=== PATIENT | male | born 1985 | race Caucasian/White ===

== ENCOUNTER 2020-08-04 01:18 | Inpatient (IN) | payer BC ==
[2020-08-04] MEDS ORDERED: LORazepam 2 MG/ML INJ IV STA (01:31)
--- NOTE | 2020-08-04 01:31 | ED ---
Psych HPI - General Chief Complaint: Psychiatric Symptoms Stated Complaint: Mental Health Time Seen by Provider: 08/04/20 01:31 Source: patient, RN notes reviewed, old records reviewed Mode of arrival: ambulatory Limitations: altered mental status - History of Present Illness Initial Comments: This is a 35-year-old male DF for evaluation patient Dese for evaluation of significant psychiatric issues. Patient is depressed and suicidal. States that his left him.. Patient does admit to doing some amphetamines and different medications as well as some drinking some alcohol. Patient does admit to depression suicidal thoughts. Patient is rambling agitated, was found outside the hospital did not come in under his own will go to [facility] for psychiatric evaluation MD Complaint: suicidal ideation, feels depressed, altered mental status -: hour(s) Associated Psychiatric Symptoms: depression, suicidal ideation, racing thoughts Quality: constant Improves With: none Worsens With: none Context: recent drug abuse, significant life stressor Associated Symptoms: confusion Treatments Prior to Arrival: placed on mental health hold If Self Harm: admits thoughts of self harm - Related Data Allergies Allergy/AdvReac Type Severity Reaction Status Date / Time No Known Allergies Allergy Verified 08/04/20 01:29 Review of Systems ROS Statement: Those systems with pertinent positive or pertinent negative responses have been documented in the HPI. ROS Other: All systems not noted in ROS Statement are negative. Past Medical History Past Medical History: No Reported History History of Any Multi-Drug Resistant Organisms: None Reported Past Surgical History: No Surgical Hx Reported Past Psychological History: No Psychological Hx Reported Smoking Status: Current every day smoker Past Alcohol Use History: Abuse, Heavy Past Drug Use History: Marijuana General Exam Limitations: no limitations General appearance: alert, in no apparent distress, anxious Head exam: Present: atraumatic, normocephalic, normal inspection Eye exam: Present: normal appearance, PERRL, EOMI. Absent: scleral icterus, conjunctival injection, periorbital swelling ENT exam: Present: normal exam, mucous membranes moist Neck exam: Present: normal inspection. Absent: tenderness, meningismus, lymphadenopathy Respiratory exam: Present: normal lung sounds bilaterally. Absent: respiratory distress, wheezes, rales, rhonchi, stridor Cardiovascular Exam: Present: normal rhythm, tachycardia, normal heart sounds. Absent: systolic murmur, diastolic murmur, rubs, gallop, clicks GI/Abdominal exam: Present: soft, normal bowel sounds. Absent: distended, tenderness, guarding, rebound, rigid Extremities exam: Present: normal inspection, full ROM, normal capillary refill. Absent: tenderness, pedal edema, joint swelling, calf tenderness Back exam: Present: normal inspection Neurological exam: Present: alert, oriented X3, CN II-XII intact Psychiatric exam: Present: normal affect, normal mood Skin exam: Present: warm, dry, intact, normal color. Absent: rash Course Vital Signs 08/04/20 08/04/20 01:21 03:22 Temperature 98 F Pulse Rate 144 H 108 H Respiratory 18 20 Rate Blood Pressure 170/96 120/69 O2 Sat by Pulse 97 97 Oximetry - Reevaluation(s) Reevaluation #1: 08/04/20 05:15 Medical record is reviewed 08/04/20 05:15 Medical clear for psychiatric evaluation Medical Decision Making - Medical Decision Making 35 male who was seen and evaluated by psychiatry, patient be admitted for psychiatric evaluation and treatment - Lab Data Result diagrams: 08/04/20 01:45 08/04/20 01:45 Lab Results 08/04/20 08/04/20 08/04/20 Range/Units 01:45 01:45 01:45 WBC 11.8 H (3.8-10.6) k/uL RBC 6.34 H (4.30-5.90) m/uL Hgb 13.5 (13.0-17.5) gm/dL Hct 40.4 (39.0-53.0) % MCV 63.7 L (80.0-100.0) fL MCH 21.3 L (25.0-35.0) pg MCHC 33.4 (31.0-37.0) g/dL RDW 14.1 (11.5-15.5) % Plt Count 264 (150-450) k/uL MPV 7.4 Neutrophils % 71 % Lymphocytes % 21 % Monocytes % 5 % Eosinophils % 1 % Basophils % 1 % Neutrophils # 8.4 H (1.3-7.7) k/uL Lymphocytes # 2.4 (1.0-4.8) k/uL Monocytes # 0.6 (0-1.0) k/uL Eosinophils # 0.1 (0-0.7) k/uL Basophils # 0.1 (0-0.2) k/uL Microcytosis Marked Sodium 139 (137-145) mmol/L Potassium 3.4 L (3.5-5.1) mmol/L Chloride 101 (98-107) mmol/L Carbon Dioxide 25 (22-30) mmol/L Anion Gap 13 mmol/L BUN 7 L (9-20) mg/dL Creatinine 1.14 (0.66-1.25) mg/dL Est GFR (CKD-EPI)AfAm >90 (>60 ml/min/1.73 sqM) Est GFR (CKD-EPI)NonAf 84 (>60 ml/min/1.73 sqM) Glucose 152 H (74-99) mg/dL Calcium 10.2 (8.4-10.2) mg/dL Phosphorus 4.0 (2.5-4.5) mg/dL Magnesium 2.1 (1.6-2.3) mg/dL Total Bilirubin 1.7 H (0.2-1.3) mg/dL AST 41 (17-59) U/L ALT 39 (4-49) U/L Alkaline Phosphatase 70 (38-126) U/L Total Protein 7.9 (6.3-8.2) g/dL Albumin 5.2 H (3.5-5.0) g/dL Salicylates <1.0 mg/dL Urine Opiates Screen Not Detected (NotDetected) Ur Oxycodone Screen Not Detected (NotDetected) Urine Methadone Screen Not Detected (NotDetected) Ur Propoxyphene Screen Not Detected (NotDetected) Acetaminophen <10.0 ug/mL Ur Barbiturates Screen Not Detected (NotDetected) U Tricyclic Antidepress Not Detected (NotDetected) Ur Phencyclidine Scrn Not Detected (NotDetected) Ur Amphetamines Screen Detected H (NotDetected) U Methamphetamines Scrn Not Detected (NotDetected) U Benzodiazepines Scrn Not Detected (NotDetected) Urine Cocaine Screen Not Detected (NotDetected) U Marijuana (THC) Screen Detected H (NotDetected) Serum Alcohol 46 mg/dL Disposition Clinical Impression: Drug-induced psychotic disorder, Psychosis Disposition: TRANSFER TO PSYCH HOSP/UNIT Condition: Fair Is patient prescribed a controlled substance at d/c from ED?: No Referrals: Cristine Wilks DO [Primary Care Provider] - 1-2 days
[2020-08-04] MEDS ORDERED: SODIUM CHLORIDE 0.9% 1,000 ML IV STA ×2 (01:32)
[2020-08-04 02:01] LABS: Basophils # (A) 0.1 k/uL (0-0.2); Basophils % (A) 1 %; Eosinophils # (A) 0.1 k/uL (0-0.7); Eosinophils % (A) 1 %; HCT 40.4 % (39.0-53.0); HGB 13.5 gm/dL (13.0-17.5); Lymphocytes # (A) 2.4 k/uL (1.0-4.8); Lymphocytes % (A) 21 %; MCH 21.3 pg (25.0-35.0); MCHC 33.4 g/dL (31.0-37.0); MCV 63.7 fL (80.0-100.0); Mean Platelet Volume 7.4; Microcytosis Marked; Monocytes # (A) 0.6 k/uL (0-1.0); Monocytes % (A) 5 %; Neutrophils # (A) 8.4 k/uL (1.3-7.7); Neutrophils % (A) 71 %; Platelet Count 264 k/uL (150-450); RBC 6.34 m/uL (4.30-5.90); RDW 14.1 % (11.5-15.5); WBC 11.8 k/uL (3.8-10.6)
[2020-08-04 02:10] LABS: ALT 39 U/L (4-49); AST 41 U/L (17-59); Acetaminophen <10.0 ug/mL; African American GFR (CKD) >90 (>60 ml/min/1.73 sqM); Albumin 5.2 g/dL (3.5-5.0); Alcohol 46 mg/dL; Alkaline Phosphatase 70 U/L (38-126); Anion Gap 13 mmol/L; Blood Urea Nitrogen 7 mg/dL (9-20); Calcium 10.2 mg/dL (8.4-10.2); Carbon Dioxide 25 mmol/L (22-30); Chloride 101 mmol/L (98-107); Glucose 152 mg/dL (74-99); Magnesium 2.1 mg/dL (1.6-2.3); Non-African American GFR(CKD) 84 (>60 ml/min/1.73 sqM); Potassium 3.4 mmol/L (3.5-5.1); Salicylate <1.0 mg/dL; Sodium 139 mmol/L (137-145); Total Bilirubin 1.7 mg/dL (0.2-1.3); Total Protein 7.9 g/dL (6.3-8.2)
[2020-08-04 03:19] LABS: Amphetamine Screen,Urine Detected (NotDetected); Cocaine Screen,Urine Not Detected (NotDetected); Opiate Screen,Urine Not Detected (NotDetected); Phencyclidine Screen,Urine Not Detected (NotDetected); Urn Cannabinoid Scrn Detected (NotDetected)
[2020-08-04 03:20] LABS: Barbiturate Screen,Urine Not Detected (NotDetected); Benzodiazepines Screen,Urine Not Detected (NotDetected); Methadone Screen, Urine Not Detected (NotDetected); Oxycodone Screen, Urine Not Detected (NotDetected); Tricyclic Antidepressant,Urine Not Detected (NotDetected)
[2020-08-04] MEDS ORDERED: ACETAMINOPHEN TAB 325 MG TAB PO PRN (09:19)
[2020-08-04] MEDS ORDERED: LORazepam 1 MG TAB PO PRN (09:19)
[2020-08-04] MEDS ORDERED: MAGNESIUM HYDROXIDE 2,400 MG/10 ML CUP PO PRN (09:19)
[2020-08-04] MEDS ORDERED: MAG HYDROX/AL HYDROX/SIMETH 30 ML CUP PO PRN (09:19)
[2020-08-04] MEDS ORDERED: LORazepam 2 MG/ML INJ IM PRN (09:21)
[2020-08-04] MEDS ORDERED: HALOPERIDOL LACTATE 5 MG/ML 1 ML VIAL IM PRN (09:22)
[2020-08-04] MEDS ORDERED: haloperidoL 5 MG TAB PO PRN (09:22)
[2020-08-04] MEDS: amLODIPine 5 MG TAB PO SCH (16:34)
--- NOTE | 2020-08-04 17:13 | P.HP ---
Psychiatric H&P - . H&P Date: 08/04/20 History & Physical: Reviewed the medical record and attempted to interview the patient. He is markedly sedated and would not get out of bed. I'll attempt to evaluate again him tomorrow. Allergies Allergy/AdvReac Type Severity Reaction Status Date / Time No Known Allergies Allergy Verified 08/04/20 10:44 Vital Signs Temp 96.9 F L 08/04/20 16:35 Pulse 63 08/04/20 16:35 Resp 16 08/04/20 16:35 BP 127/86 08/04/20 16:35 Pulse Ox 97 08/04/20 09:45 Intake & Output 08/03/20 08/04/20 08/04/20 18:59 06:59 18:59 Weight 127.006 kg 134.3 kg Laboratory Last Values WBC 11.8 k/uL (3.8-10.6) H 08/04/20 01:45 RBC 6.34 m/uL (4.30-5.90) H 08/04/20 01:45 Hgb 13.5 gm/dL (13.0-17.5) 08/04/20 01:45 Hct 40.4 % (39.0-53.0) 08/04/20 01:45 MCV 63.7 fL (80.0-100.0) L 08/04/20 01:45 MCH 21.3 pg (25.0-35.0) L 08/04/20 01:45 MCHC 33.4 g/dL (31.0-37.0) 08/04/20 01:45 RDW 14.1 % (11.5-15.5) 08/04/20 01:45 Plt Count 264 k/uL (150-450) 08/04/20 01:45 MPV 7.4 08/04/20 01:45 Neutrophils % 71 % 08/04/20 01:45 Lymphocytes % 21 % 08/04/20 01:45 Monocytes % 5 % 08/04/20 01:45 Eosinophils % 1 % 08/04/20 01:45 Basophils % 1 % 08/04/20 01:45 Neutrophils # 8.4 k/uL (1.3-7.7) H 08/04/20 01:45 Lymphocytes # 2.4 k/uL (1.0-4.8) 08/04/20 01:45 Monocytes # 0.6 k/uL (0-1.0) 08/04/20 01:45 Eosinophils # 0.1 k/uL (0-0.7) 08/04/20 01:45 Basophils # 0.1 k/uL (0-0.2) 08/04/20 01:45 Microcytosis Marked 08/04/20 01:45 Sodium 139 mmol/L (137-145) 08/04/20 01:45 Potassium 3.4 mmol/L (3.5-5.1) L 08/04/20 01:45 Chloride 101 mmol/L (98-107) 08/04/20 01:45 Carbon Dioxide 25 mmol/L (22-30) 08/04/20 01:45 Anion Gap 13 mmol/L 08/04/20 01:45 BUN 7 mg/dL (9-20) L 08/04/20 01:45 Creatinine 1.14 mg/dL (0.66-1.25) 08/04/20 01:45 Est GFR (CKD-EPI)AfAm >90 (>60 ml/min/1.73 sqM) 08/04/20 01:45 Est GFR (CKD-EPI)NonAf 84 (>60 ml/min/1.73 sqM) 08/04/20 01:45 Glucose 152 mg/dL (74-99) H 08/04/20 01:45 Calcium 10.2 mg/dL (8.4-10.2) 08/04/20 01:45 Phosphorus 4.0 mg/dL (2.5-4.5) 08/04/20 01:45 Magnesium 2.1 mg/dL (1.6-2.3) 08/04/20 01:45 Total Bilirubin 1.7 mg/dL (0.2-1.3) H 08/04/20 01:45 AST 41 U/L (17-59) 08/04/20 01:45 ALT 39 U/L (4-49) 08/04/20 01:45 Alkaline Phosphatase 70 U/L (38-126) 08/04/20 01:45 Total Protein 7.9 g/dL (6.3-8.2) 08/04/20 01:45 Albumin 5.2 g/dL (3.5-5.0) H 08/04/20 01:45 Salicylates <1.0 mg/dL 08/04/20 01:45 Urine Opiates Screen Not Detected (NotDetected) 08/04/20 01:45 Ur Oxycodone Screen Not Detected (NotDetected) 08/04/20 01:45 Urine Methadone Screen Not Detected (NotDetected) 08/04/20 01:45 Ur Propoxyphene Screen Not Detected (NotDetected) 08/04/20 01:45 Acetaminophen <10.0 ug/mL 08/04/20 01:45 Ur Barbiturates Screen Not Detected (NotDetected) 08/04/20 01:45 U Tricyclic Antidepress Not Detected (NotDetected) 08/04/20 01:45 Ur Phencyclidine Scrn Not Detected (NotDetected) 08/04/20 01:45 Ur Amphetamines Screen Detected (NotDetected) H 08/04/20 01:45 U Methamphetamines Scrn Not Detected (NotDetected) 08/04/20 01:45 U Benzodiazepines Scrn Not Detected (NotDetected) 08/04/20 01:45 Urine Cocaine Screen Not Detected (NotDetected) 08/04/20 01:45 U Marijuana (THC) Screen Detected (NotDetected) H 08/04/20 01:45 Serum Alcohol 46 mg/dL 08/04/20 01:45 Coronavirus (PCR) Not Detected (Not Detectd) 08/04/20 06:22 08/04/20 17:12
--- NOTE | 2020-08-05 03:50 | P.MDCNMH ---
History of Present Illness H&P Date: 08/05/20 Chief Complaint: medical evaluation 35 year old male with ADD, hypertension patient comes in to the hospital for evaluation , due to suicidal ideation , and he is struggling with ADD. he other gardner denies any medical complaints, he does report border line A1C that he has been trying to control . and also history of KARRIE, otherwise currently denies any medical concerns , denies any fever, chills, chest pain , sOB, abd pain , nausea or vomiting, denies any changes in bowel or urinary habits. Review of Systems Pertinent positives as noted in HPI. All other systems were reviewed and are negative Past Medical History Past Medical History: No Reported History, Hypertension Additional Past Medical History / Comment(s): hx of Sleep apnea History of Any Multi-Drug Resistant Organisms: None Reported Past Surgical History: No Surgical Hx Reported Past Anesthesia/Blood Transfusion Reactions: No Reported Reaction Past Psychological History: No Psychological Hx Reported Smoking Status: Current every day smoker Past Alcohol Use History: Abuse, Heavy Past Drug Use History: Marijuana - Past Family History Family Family Medical History: No Reported History Medications and Allergies Home Medications Medication Instructions Recorded Confirmed Type Dextroamphetamine/Amphetamine 30 mg PO DAILY 08/04/20 08/04/20 History [Adderall Xr] Dextroamphetamine/Amphetamine 20 mg PO DAILY 08/04/20 08/04/20 History [Dextroamp-Amphetamin 20 mg Tab] Omeprazole 40 mg PO DAILY 08/04/20 08/04/20 History PARoxetine HCL [Paxil] 60 mg PO DAILY 08/04/20 08/04/20 History amLODIPine [Norvasc] 5 mg PO DAILY 08/04/20 08/04/20 History Allergies Allergy/AdvReac Type Severity Reaction Status Date / Time No Known Allergies Allergy Verified 08/04/20 10:44 Physical Exam Vitals: Vital Signs Temp Pulse Pulse Resp BP BP Pulse Ox 08/04/20 16:35 96.9 F L 63 16 127/86 08/04/20 09:45 97.7 F 85 18 150/97 97 08/04/20 09:32 98.1 F 88 18 151/93 99 08/04/20 08:00 18 08/04/20 06:00 98.1 F 88 18 151/93 99 Intake and Output 08/04/20 08/04/20 08/05/20 14:59 22:59 06:59 Other: Weight 134.3 kg Constitutional: No acute distress, conversant, pleasant Eyes: Anicteric sclerae, moist conjunctiva, Pupils equal round reactive to light ENMT: NC/AT Oropharynx clear, no erythema, or exudates Neck: Supple, FROM, no masses, or JVD No carotid bruits No thyromegaly Lungs: Clear to auscultation Clear to percussion Normal respiratory effort, no accessory muscle use Cardiovascular: Heart regular in rate and rhythm, No murmurs, gallops, or rubs No peripheral edema Abdominal: Soft Nontender, no guarding, rebound or rigidity Abdomen moving with respiration Normoactive bowel sounds No hepatomegaly, No splenomegaly No palpable mass No abdominal wall hernia noted Skin: Normal temperature, tone, texture, turgor No induration No subcutaneous nodules No rash, lesions No ulcers Extremities: No digital cyanosis No clubbing Pedal pulses intact and symmetrical Radial pulses intact and symmetrical No calf tenderness Psychiatric: Alert and oriented to person, place and time Appropriate affect fair judgement Neuro Muscles Strength 5/5 in all 4 extremities Sensation to light touch grossly present throughout Cranial nerves II-XII grossly intact No focal sensory deficits Lymphatics: no palpable cervical or supraclavicular , or inguinal lymph nodes Cranial Nerve Examination - Cranial Nerves Cranial Nerve II- Optic: Intact Cranial Nerve III- Oculomotor: Intact Cranial Nerve IV- Trochlear: Intact Cranial Nerve V- Trigeminal: Intact Cranial Nerve - Abducens: Intact Cranial Nerve VII- Facial: Intact Cranial Nerve VIII- Auditory: Intact Cranial Nerve IX- Glossopharyngeal: Intact Cranial Nerve X- Vagus: Intact Cranial Nerve XI- Accessory: Intact Cranial Nerve XII- Hypoglossal: Intact Results CBC & Chem 7: 08/04/20 01:45 08/04/20 01:45 Assessment and Plan Assessment: Suicidal ideation ADD Management per psych Suicide precautions Hypertension resume home meds Borderline diabetes mellitus, Check A1c Counseled regarding Lifestyle modification Obstructive sleep apnea Encouraged patient to sleep on his left side while inpatient Thank you for allowing us to participate in the care of this patient. We will follow peripherally. Do not hesitate to contact us with questions. Someone can be reached from the [facility] [place] [facility] [place] at all hours of the day at [phone].
[2020-08-05] MEDS: amLODIPine 5 MG TAB PO SCH (08:49)
[2020-08-05 13:51] LABS: Hemoglobin A1C 5.8 % (4.0-6.0)
[2020-08-06 07:10] VITALS: BP 112/70; PULSE 72; RESP 16; TEMP 97.9
[2020-08-06] MEDS: amLODIPine 5 MG TAB PO SCH (10:07)
--- NOTE | 2020-08-06 11:22 | P.DS ---
Providers Date of admission: 08/04/20 09:05 Expected date of discharge: 08/06/20 Attending physician: Venkat Peralta MD Consults: 08/04/20 09:19 Consult Physician Routine Consulting Provider: Ned Walker Consult Reason/Comments: H&P for mental health admission Do you want consulting provider notified?: Yes Primary care physician: Cristine Wilks - Discharge Diagnosis(es) (1) Substance induced mood disorder Current Visit: Yes Status: Acute Priority: High (2) Amphetamine abuse Current Visit: Yes Status: Acute Priority: High (3) Cannabis abuse Current Visit: Yes Status: Acute Priority: Medium (4) History of ADHD Current Visit: Yes Status: Acute Priority: Low Hospital Course: Admission HPI: Admission note was completed by Dr. Thomson "Yoni is a 35-year-old male admitted to the psychiatric unit voluntarily. I reviewed the medical record, interviewed the patient and spoke with his , Romi, on the telephone. This was a difficult interview in that he was not forthcoming with information. The interview felt like a game of 20 questions. He was guarded, suspicious and controlling. He stated that he was at the [facility] because he had his first marriage at the [facility] and it was a "happy time of my life." [place] and when he saw a police car attempted to get the attention of the patient safety officer to take him to the hospital. 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 He walked to the hospital and, because he had worked at a hospital before, he knew to "stand around the employee entrance." After getting to attention of employees who were leaving the hospital he waited until security arrived. When asked him what was distressing him he replied "life in general." Eventually he related that he was at the [place] and because his left him but he denied that they're having marital difficulties. He alleged that his was distressed because he had an argument with her father because he had "fired" her brother from his car [employer] business. He denied feeling depressed but complained that he was distressed about lifel. Romi stated that she and her family have been concerned about his well-being. He stated that he has been agitated and restless. She complained that he was speaking rapidly and nonstop. Her father attempted, on the prior to admission, to bring in the hospital because father was concerned about his mental health. Romi stated that she left him because she could not "take it" anymore. When asked to explain what she meant she talked about his restlessness and demands on her." Hospital course: Upon admission to the unit patient was initially guarded and suspicious. Patient was however directable and agreeable to commence treatment and signed adult voluntary form. Patient got along well with other patients on the unit and followed unit protocol. Patient was compliant with the medications and denied any side effects throughout hospital course. Patient was started on his home medications except for Adderall which was held. Patient had been admitting to abusing this medication and taking more than he supposed to to help with his energy level during the day and nighttime as he is started new business. Pull Worker spoke with patient about the abuse potential of this medication and potential risks including tolerance and overdosed potential and abuse, its link to depression and mental illness and patient verbally understood and agreed to take the medication as prescribed. Patient was not started on any other psychiatric medications during his hospitalization. Patient spoke of his stressors and engaged in therapy both group and individual. Patient was also seen by medical team for history and physical exam. Throughout the course of the hospitalization patient gradually improved with regards to mood, anxiety, sleep and became more future oriented with improved insight and judgment. On the day of discharge patient denied any suicidal or homicidal ideations intent or plan denied any auditory or visual hallucinations. Patient endorsed wanting to live for his health and family. The patient denied any access to guns or weapons. Patient denied any paranoia and did not endorse any delusions. Patient does have a significant history of substance abuse and was counseled on abstaining from all substances including alcohol and marijuana. Patient was offered inpatient substance abuse rehab and states that he will think about it as he is fairly busy with his new business. Patient elected to do outpatient substance use treatment programs. Patient was also counseled on the medications and need for regular compliance and was encouraged to follow-up with their outpatient appointment for mental health and also for primary care. Prior to discharge a family meeting will be arranged by social services specialist to answer any questions and ensure safety upon discharge. Mental status exam: General Appearance: Patient appears to be a tall, overweight, stated age is alert, pleasant, and cooperative. Patient is in no acute distress and has improved hygiene and grooming Behavior: Patient is calmly seated without any agitated behavior. Speech: Patient's speech is fluent and nonpressured. Mood/Affect: Patient reports their mood is "better", affect is congruent and euthymic. Suicidality/Homicidality: Patient denies having any suicidal or homicidal ideation intent or plan. Perceptions: Patient denies any auditory or visual hallucinations. Though content/process: There is no evidence of any delusional thought content and thought process is linear and goal-directed. more future oriented Memory and concentration: AOX3, grossly intact for the purposes of this session. Can spell "WORLD" backwards correctly. Judgment and insight: improved with guarded prognosis Impression: Substance-induced mood disorder Amphetamine abuse Cannabis abuse History of ADHD Plan: -Continue with discharge today as patient has improved and stabilized psychiatrically and is not currently an imminent threat to himself and/or others. Patient will remain at chronically elevated risk for harm to self and/or others due to his polysubstance abuse. -Continue medications: Patient's home medications. Patient was specifically warned about the risks and link to mental health of his Adderall as stated above. Patient verbally understood and agreed. -Patient was counseled on the need for medication compliance and appropriate follow-up at mental health and also primary care for medical issues. Patient verbalized understanding and agreed. -Social work to arrange for and conduct family meeting with patients today to ensure safety upon discharge and answer any questions/concerns. Social work also to arrange for patients follow up appointments for psychiatric care along with follow up with primary care provider. -Patient counseled on abstaining from recreational drugs and marijuana and alcohol. Was informed/educated on the adverse effects on their physical and mental health. Patient verbally agreed and understood. Patient was offered substance abuse treatment however claimed that he would like to think about it. -Patient was instructed to return to the hospital or seek immediate medical care if their psychiatric or medical symptoms do worsen or reoccur. Allergies Allergy/AdvReac Type Severity Reaction Status Date / Time No Known Allergies Allergy Verified 08/04/20 10:44 Laboratory Results WBC 11.8 k/uL (3.8-10.6) H 08/04/20 01:45 RBC 6.34 m/uL (4.30-5.90) H 08/04/20 01:45 Hgb 13.5 gm/dL (13.0-17.5) 08/04/20 01:45 Hct 40.4 % (39.0-53.0) 08/04/20 01:45 MCV 63.7 fL (80.0-100.0) L 08/04/20 01:45 MCH 21.3 pg (25.0-35.0) L 08/04/20 01:45 MCHC 33.4 g/dL (31.0-37.0) 08/04/20 01:45 RDW 14.1 % (11.5-15.5) 08/04/20 01:45 Plt Count 264 k/uL (150-450) 08/04/20 01:45 MPV 7.4 08/04/20 01:45 Neutrophils % 71 % 08/04/20 01:45 Lymphocytes % 21 % 08/04/20 01:45 Monocytes % 5 % 08/04/20 01:45 Eosinophils % 1 % 08/04/20 01:45 Basophils % 1 % 08/04/20 01:45 Neutrophils # 8.4 k/uL (1.3-7.7) H 08/04/20 01:45 Lymphocytes # 2.4 k/uL (1.0-4.8) 08/04/20 01:45 Monocytes # 0.6 k/uL (0-1.0) 08/04/20 01:45 Eosinophils # 0.1 k/uL (0-0.7) 08/04/20 01:45 Basophils # 0.1 k/uL (0-0.2) 08/04/20 01:45 Microcytosis Marked 08/04/20 01:45 Sodium 139 mmol/L (137-145) 08/04/20 01:45 Potassium 3.4 mmol/L (3.5-5.1) L 08/04/20 01:45 Chloride 101 mmol/L (98-107) 08/04/20 01:45 Carbon Dioxide 25 mmol/L (22-30) 08/04/20 01:45 Anion Gap 13 mmol/L 08/04/20 01:45 BUN 7 mg/dL (9-20) L 08/04/20 01:45 Creatinine 1.14 mg/dL (0.66-1.25) 08/04/20 01:45 Est GFR (CKD-EPI)AfAm >90 (>60 ml/min/1.73 sqM) 08/04/20 01:45 Est GFR (CKD-EPI)NonAf 84 (>60 ml/min/1.73 sqM) 08/04/20 01:45 Glucose 152 mg/dL (74-99) H 08/04/20 01:[address] Glu mg/dL 120 08/04/20 01:45 Hemoglobin A1c 5.8 % (4.0-6.0) 08/04/20 01:45 Calcium 10.2 mg/dL (8.4-10.2) 08/04/20 01:45 Phosphorus 4.0 mg/dL (2.5-4.5) 08/04/20 01:45 Magnesium 2.1 mg/dL (1.6-2.3) 08/04/20 01:45 Total Bilirubin 1.7 mg/dL (0.2-1.3) H 08/04/20 01:45 AST 41 U/L (17-59) 08/04/20 01:45 ALT 39 U/L (4-49) 08/04/20 01:45 Alkaline Phosphatase 70 U/L (38-126) 08/04/20 01:45 Total Protein 7.9 g/dL (6.3-8.2) 08/04/20 01:45 Albumin 5.2 g/dL (3.5-5.0) H 08/04/20 01:45 Triglycerides 83 mg/dL (<150) 08/04/20 01:45 Cholesterol 166 mg/dL (<200) 08/04/20 01:45 LDL Cholesterol, Calc 103 mg/dL (0-99) H 08/04/20 01:45 HDL Cholesterol 46 mg/dL (40-60) 08/04/20 01:45 TSH 2.640 mIU/L (0.465-4.680) 08/04/20 01:45 Salicylates <1.0 mg/dL 08/04/20 01:45 Urine Opiates Screen Not Detected (NotDetected) 08/04/20 01:45 Ur Oxycodone Screen Not Detected (NotDetected) 08/04/20 01:45 Urine Methadone Screen Not Detected (NotDetected) 08/04/20 01:45 Ur Propoxyphene Screen Not Detected (NotDetected) 08/04/20 01:45 Acetaminophen <10.0 ug/mL 08/04/20 01:45 Ur Barbiturates Screen Not Detected (NotDetected) 08/04/20 01:45 U Tricyclic Antidepress Not Detected (NotDetected) 08/04/20 01:45 Ur Phencyclidine Scrn Not Detected (NotDetected) 08/04/20 01:45 Ur Amphetamines Screen Detected (NotDetected) H 08/04/20 01:45 U Methamphetamines Scrn Not Detected (NotDetected) 08/04/20 01:45 U Benzodiazepines Scrn Not Detected (NotDetected) 08/04/20 01:45 Urine Cocaine Screen Not Detected (NotDetected) 08/04/20 01:45 U Marijuana (THC) Screen Detected (NotDetected) H 08/04/20 01:45 Serum Alcohol 46 mg/dL 08/04/20 01:45 Coronavirus (PCR) Not Detected (Not Detectd) 08/04/20 06:22 Vital Signs Temp 97.9 F 08/06/20 06:09 Pulse 72 08/06/20 06:09 Resp 16 08/06/20 06:09 BP 112/70 08/06/20 06:09 Pulse Ox 96 08/05/20 22:35 Patient Condition at Discharge: Stable Plan - Discharge Summary Discharge Rx Participant: No New Discharge Prescriptions: Continue Dextroamphetamine/Amphetamine [Adderall Xr] 30 mg PO DAILY Omeprazole 40 mg PO DAILY amLODIPine [Norvasc] 5 mg PO DAILY Discontinued PARoxetine HCL [Paxil] 60 mg PO DAILY Dextroamphetamine/Amphetamine [Dextroamp-Amphetamin 20 mg Tab] 20 mg PO DAILY Discharge Medication List Dextroamphetamine/Amphetamine [Adderall Xr] 30 mg PO DAILY 08/04/20 [History] Omeprazole 40 mg PO DAILY 08/04/20 [History] amLODIPine [Norvasc] 5 mg PO DAILY 08/04/20 [History] Follow up Appointment(s)/Referral(s): rCistine Wilks DO [Primary Care Provider] - 1-2 days Activity/Diet/Wound Care/Special Instructions: Activity and diet as tolerated. Avoid the use of street drugs and alcohol. Take all medications as prescribed. When you are in need of refills on your medications please contact your medical provider and/or outpatient psychiatrist to have this done. Please go to scheduled outpatient appointment for aftercare treatment. If symptoms return or become worse, call the crisis line at and/or go to the nearest emergency room for evaluation. Discharge Disposition: HOME SELF-CARE
== END 2020-08-06 18:23 | disposition home or self-care (01) | DRG 897 ==
LOC: EC 01:18 → 3MHU 09:05
PROVIDERS: ADMIT Psychiatry & Neurology Psychiatry; ATTEND Psychiatry & Neurology Psychiatry
DX: F15.159 Other stimulant abuse with stimulant-induced psychotic disorder, unspecified (principal); R45.851 Suicidal ideations; F12.10 Cannabis abuse, uncomplicated; F17.210 Nicotine dependence, cigarettes, uncomplicated; F31.9 Bipolar disorder, unspecified; R73.03 Prediabetes; F41.9 Anxiety disorder, unspecified; I10 Essential (primary) hypertension; Z59.9 Problem related to housing and economic circumstances, unspecified; Z20.822 Contact with and (suspected) exposure to COVID-19; Z71.51 Drug abuse counseling and surveillance of drug abuser; G47.33 Obstructive sleep apnea (adult) (pediatric); Z79.899 Other long term (current) drug therapy
CPT/HCPCS: 36415; 80053; 80061; 80143; 80179; 80306; 80320; 82075; 83036; 83735; 84100; 84443; 85025; 87635; 96361; 96374; 99285

== ENCOUNTER 2021-11-28 18:02 | Inpatient (IN) | payer BC ==
[2021-11-28] MEDS ORDERED: OLANZapine 10 MG VIAL IM PRN (18:44)
[2021-11-28] MEDS ORDERED: OLANZapine 7.5 MG TAB PO PRN (18:44)
[2021-11-28] MEDS ORDERED: hydrOXYzine pamoate 25 MG CAP PO PRN (19:09)
[2021-11-28] MEDS ORDERED: MAG HYDROX/AL HYDROX/SIMETH 30 ML CUP PO PRN (19:14)
[2021-11-28] MEDS ORDERED: ACETAMINOPHEN TAB 325 MG TAB PO PRN (19:14)
[2021-11-28] MEDS ORDERED: MAGNESIUM HYDROXIDE 2,400 MG/10 ML CUP PO PRN (19:14)
[2021-11-28] MEDS: busPIRone HCl 10 MG TAB PO SCH (21:43)
[2021-11-28] MEDS: OLANZapine 5 MG TAB PO SCH (21:43)
--- NOTE | 2021-11-29 03:52 | P.HPIM ---
History of Present Illness H&P Date: 11/28/21 The patient is a 36-year-old male with a PMH of bipolar disorder and hypertension who was brought to [facility] due to erratic behavior. The patient was noted to be psychotic and was recently transferred to [facility] unit where he was seen and evaluated. The patient reports that he recently had a "mental breakdown" which was triggered by an argument with his . He reports feeling significantly better at the time of interview. Reports using marijuana and vaping but denied any additional illicit substance use. Denied experiencing chest discomfort, shortness of breath, fever, chills, cough, nausea, vomiting, abdominal pain, diarrhea. Review of systems: Pertinent positives and negatives as discussed in HPI, a complete review of systems was performed and all other systems are negative. Physical examination: General: non toxic, no distress, appears at stated age, obese Derm: no unusual rashes/lesions, no unusual ecchymoses, warm, dry Head: atraumatic, normocephalic, symmetric Eyes: EOMI, no lid lag, anicteric sclera ENT: Nose and ears atraumatic, no thrush, no pharyngeal erythema Neck: trachea midline, supple Mouth: no lip lesion, mucus membranes moist Cardiovascular: S1S2 reg, no murmur, no edema Lungs: CTA bilateral, no rhonchi, no rales , no accessory muscle use Abdominal: soft, nontender to palpation, no guarding Ext: no gross muscle atrophy, no contractures, Neuro: No gross focal neuro deficits noted Psych: Alert, oriented, appropriate affect Assessment/plan Marijuana, vape abuse -Strongly advised on importance of cessation Hypertension -Continue with home meds once confirmed Psychosis -As per psychiatry Thank you for allowing us to participate in the care of this patient. We will follow peripherally. Do not hesitate to contact us with questions. Someone can be reached from the [facility] hospitalist group at all hours of the day at [phone]. Past Medical History Past Medical History: No Reported History, Hypertension Additional Past Medical History / Comment(s): hx of Sleep apnea History of Any Multi-Drug Resistant Organisms: None Reported Past Surgical History: No Surgical Hx Reported Past Anesthesia/Blood Transfusion Reactions: No Reported Reaction Past Psychological History: No Psychological Hx Reported Smoking Status: Never smoker Past Drug Use History: Marijuana - Past Family History Family Family Medical History: Hyperlipidemia Medications and Allergies Home Medications Medication Instructions Recorded Confirmed Type Dextroamphetamine/Amphetamine 30 mg PO DAILY 08/04/20 08/04/20 History [Adderall Xr] Omeprazole 40 mg PO DAILY 08/04/20 08/04/20 History amLODIPine [Norvasc] 5 mg PO DAILY 08/04/20 08/04/20 History Allergies Allergy/AdvReac Type Severity Reaction Status Date / Time No Known Allergies Allergy Verified 08/04/20 10:44 Physical Exam Vitals: Vital Signs Temp Pulse Resp BP Pulse Ox 11/28/21 21:51 98 F 86 18 164/92 97 Intake and Output 11/28/21 11/28/21 11/29/21 14:59 22:59 06:59 Other: Weight 147.531 kg Thrombosis Risk Factor Assmnt - Choose All That Apply Any of the Below Risk Factors Present?: No Other Risk Factors: No Other congenital or acquired thrombophilia - If yes, enter type in comment: No Thrombosis Risk Factor Assessment Level: Very Low Risk
[2021-11-29] MEDS: NICOTINE 14MG/24HR PATCH TRANSDERM SCH (08:12)
[2021-11-29] MEDS: amLODIPine 5 MG TAB PO SCH (08:12)
[2021-11-29] MEDS: busPIRone HCl 10 MG TAB PO SCH ×2 (08:12→20:05)
[2021-11-29] MEDS: SERTRALINE 100 MG TAB PO SCH (08:12)
[2021-11-29 09:43] LABS: Basophils % (A) 1 %; Eosinophils # (A) 0.2 k/uL (0-0.7); Eosinophils % (A) 3 %; HCT 44.3 % (39.0-53.0); HGB 13.6 gm/dL (13.0-17.5); Hypochromasia Slight; Lymphocytes # (A) 1.2 k/uL (1.0-4.8); Lymphocytes % (A) 19 %; MCH 20.3 pg (25.0-35.0); MCHC 30.7 g/dL (31.0-37.0); MCV 66.2 fL (80.0-100.0); Mean Platelet Volume 6.9; Microcytosis Marked; Monocytes # (A) 0.3 k/uL (0-1.0); Monocytes % (A) 4 %; Neutrophils # (A) 4.5 k/uL (1.3-7.7); Neutrophils % (A) 72 %; Platelet Count 221 k/uL (150-450); RDW 14.3 % (11.5-15.5); WBC 6.3 k/uL (3.8-10.6)
[2021-11-29 10:03] LABS: ALT 75 U/L (4-49); AST 55 U/L (17-59); African American GFR (CKD) >90 (>60 ml/min/1.73 sqM); Alkaline Phosphatase 55 U/L (38-126); Anion Gap 14 mmol/L; Bilirubin, Delta 0.1 mg/dL (0.0-0.2); Bilirubin,Unconjugated 0.8 mg/dL (0.0-1.1); Blood Urea Nitrogen 13 mg/dL (9-20); Calcium 9.6 mg/dL (8.4-10.2); Carbon Dioxide 26 mmol/L (22-30); Chloride 101 mmol/L (98-107); Glucose 149 mg/dL (74-99); Non-African American GFR(CKD) >90 (>60 ml/min/1.73 sqM); Potassium 4.3 mmol/L (3.5-5.1); Sodium 141 mmol/L (137-145); Total Bilirubin 0.9 mg/dL (0.2-1.3); Total Protein 7.8 g/dL (6.3-8.2)
[2021-11-29] MEDS: PANTOPRAZOLE 40 MG TABLET PO SCH (12:10)
[2021-11-29] MEDS: metFORMIN 500 MG TAB PO SCH ×2 (12:10→17:29)
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
[2021-11-29 15:42] LABS: Chol/HDL Ratio 4.77 Ratio
[2021-11-29] MEDS: OLANZapine 5 MG TAB PO SCH (20:05)
[2021-11-30] MEDS: SERTRALINE 100 MG TAB PO SCH (08:15)
[2021-11-30] MEDS: busPIRone HCl 10 MG TAB PO SCH ×2 (08:15→20:09)
[2021-11-30] MEDS: metFORMIN 500 MG TAB PO SCH ×2 (08:15→18:00)
[2021-11-30] MEDS: PANTOPRAZOLE 40 MG TABLET PO SCH (08:15)
[2021-11-30] MEDS: NICOTINE 14MG/24HR PATCH TRANSDERM SCH (08:15)
[2021-11-30] MEDS: amLODIPine 5 MG TAB PO SCH (08:15)
--- NOTE | 2021-11-30 13:03 | P.PN ---
Progress Note - Text Progress Note Date: 11/30/21 Open nursing and asked for suture removal. The patient has 18 stitches in their left lateral ankle. He reports that the sutures were due to be removed approximately 4-5 days ago. The replaced in the emergency department at [facility] after having an with a chainsaw. He denies any purulent drainage to the area. He denies any fevers or chills. Patient was noted to have 2 healing lacerations to the left lateral malleoli are area. They were both approximately 8 cm in length. Sutures appeared to be in tact some of which were embedded within healing scabs. There was appropriate erythema associated with healing, no warmth, and no purulent drainage noted. There was good approximation of the skin. Area was cleaned with sterile saline first. It was then cleaned with alcohol. Suture removal was performed with forceps and sterile scissors. 18 sutures were removed and accounted for. Area was again cleaned with alcohol. Steri-Strips were placed over both the caudal and cranial lacterations. Area was covered with a 4 x 4. Nursing was given instructions to change 4 x 4 daily and keep area clean and dry. Patient was instructed to allow Steri-Strips to come off naturally and not to pull or tug at these strips. He has had them before and all questions were answered. Assessment/plan: Left Ankle laceration suture removal- 18 sutures removed from left ankle. nursing to monitor once daily. keep area clean and dry
--- NOTE | 2021-11-30 16:34 | P.PN ---
Progress Note - Text Progress Note Date: 11/30/21 Interval history: Patient was seen attending group and was directable and agreeable to speak with technical document writer. He reports he is having a better day, was able to make his son a birthday card. At this time patient denies any suicidal or homicidal ideations intent or plan. He denies any auditory or visual hallucinations, does not appear to be attending internal stimuli. Patient denies any side effects from the medications and has been compliant with meds. Mental status exam: General Appearance: Patient appears to be stated age is alert, directable, and cooperative. Behavior: No agitated behavior. Patient is calm and directable. Speech: Patient's speech is fluent and non-pressured. Mood/Affect: Mood is improving mildly, affect is congruent and constricted. Suicidality/Homicidality: Patient denies having any suicidal or homicidal ideation intent or plan. Perceptions: Patient denies any auditory or visual hallucinations. Though content/process: There is no evidence of any delusional thought content and thought process is linear and goal-directed. Memory and concentration: AOX3, grossly intact for the purposes of this session Judgment and insight: improving mildly Assessment/Plan: Continue with current diagnosis. Patient continues to meet criteria for inp atient psychiatric admission for symptom stabilization and safety. Patient will be maintained on current psychotropic medication regimen. Monitor for medication compliance and for any psychotropic medication side effects. Will continue to monitor ongoing response to treatment. Encouraged participation in milieu.
[2021-11-30] MEDS: OLANZapine 5 MG TAB PO SCH (20:09)
[2021-12-01] MEDS: NICOTINE 14MG/24HR PATCH TRANSDERM SCH (08:38)
[2021-12-01] MEDS: PANTOPRAZOLE 40 MG TABLET PO SCH (08:38)
[2021-12-01] MEDS: metFORMIN 500 MG TAB PO SCH ×2 (08:40→17:31)
[2021-12-01] MEDS: SERTRALINE 100 MG TAB PO SCH (08:40)
[2021-12-01] MEDS: amLODIPine 5 MG TAB PO SCH (08:40)
[2021-12-01] MEDS: busPIRone HCl 10 MG TAB PO SCH ×2 (08:40→20:09)
--- NOTE | 2021-12-01 16:33 | P.PN ---
Progress Note - Text Progress Note Date: 12/01/21 Interval history: Patient was seen attending group again today and was directable and agreeable to speak with comic book writer. He reports good mood day but just misses his family. At this time patient denies any suicidal or homicidal ideations, intent or plan. He denies any auditory or visual hallucinations, does not appear to be attending internal stimuli. Patient denies any side effects from the medications and has been compliant with meds. Mental status exam: General Appearance: Patient appears to be stated age is alert, directable, and cooperative. Behavior: No agitated behavior. Patient is calm and directable. Speech: Patient's speech is fluent and non-pressured. Mood/Affect: Mood is improving mildly, affect is congruent and constricted. Suicidality/Homicidality: Patient denies having any suicidal or homicidal ideation intent or plan. Perceptions: Patient denies any auditory or visual hallucinations. Though content/process: There is no evidence of any delusional thought content and thought process is linear and goal-directed. Memory and concentration: AOX3, grossly intact for the purposes of this session Judgment and insight: improving mildly Assessment/Plan: Continue with current diagnosis. Patient continues to meet criteria for inpatient psychiatric admission for symptom stabilization and safety. Patient will be maintained on current psychotropic medication regimen. Monitor for medication compliance and for any psychotropic medication side effects. Will continue to monitor ongoing response to treatment. Encouraged participation in milieu.
[2021-12-01] MEDS: OLANZapine 5 MG TAB PO SCH (20:09)
[2021-12-02 06:46] VITALS: BP 134/71; PULSE 64; RESP 16; TEMP 97.4
[2021-12-02] MEDS: SERTRALINE 100 MG TAB PO SCH (08:31)
[2021-12-02] MEDS: PANTOPRAZOLE 40 MG TABLET PO SCH (08:31)
[2021-12-02] MEDS: amLODIPine 5 MG TAB PO SCH (08:31)
[2021-12-02] MEDS: metFORMIN 500 MG TAB PO SCH (08:31)
[2021-12-02] MEDS: busPIRone HCl 10 MG TAB PO SCH (08:31)
[2021-12-02] MEDS: NICOTINE 14MG/24HR PATCH TRANSDERM SCH (08:31)
--- NOTE | 2021-12-02 11:05 | P.DS ---
Providers Date of admission: 11/28/21 21:07 Expected date of discharge: 12/02/21 Attending physician: Venkat Peralta MD Consults: 11/28/21 19:14 Consult Physician Routine Consulting Provider: Ned Walker Consult Reason/Comments: medical H&P Do you want consulting provider notified?: Yes Primary care physician: Stated None - Discharge Diagnosis(es) (1) Bipolar disorder with psychotic features Current Visit: Yes Status: Acute Priority: High (2) Cannabis use disorder Current Visit: Yes Status: Acute Priority: Medium (3) Nicotine dependence Current Visit: Yes Status: Acute Priority: Low Hospital Course: Admission HPI: Admission note was completed by keno writer / runner "Patient is a 36-year-old male who is currently and works doing [employer], lives in a house has one child. Patient presented to the hospital yesterday as a transfer from [facility]. Patient was on a petition and certificate which claimed that patient was picked up by police walking on the side of a road naked and was argumentative and verbally threatening officers. According to certificate patient was also making claims that he is God. Patient was seen today and agreeable to speak to keno writer / runner. Patient claims that he is doing better at this time and claims that he "blacked out". He claims he has been in the ER since Thursday and claims that he is just here for a "med review". He claims that he was in a "customers via call" and got into an argument with someone over the phone before "blacking out". He claims that "next thing I realized I was walking on the side of the street naked". He claims that the police picked him up. He states that he is looking for his . He claims that he was feeling confused at that time. He states that he smoked a joint one hour prior to this. He claims that he may have got his medications confused. He is not endorsing any racing thoughts at this time. Not endorsing any depression or anxiety. Patient denies any suicidal or homicidal ideations intent or plan. At this time patient denies any auditory or visual hallucinations. Patient denies any flight of ideas racing thoughts and increased in goal directed behavior. Patient admits to using THC daily and claims that he also vapes" Hospital course: Upon admission to the unit patient was directable and agreeable to commence treatment and signed adult voluntary form . Patient got along well with other patients on the unit and followed unit protocol. Patient was compliant with the medications and denied any side effects throughout hospital course. Patient was started on his home dose of Zoloft 100 mg daily for mood/anxiety, BuSpar 10 mg twice a day for anxiety, Zyprexa 5 mg daily at bedtime for mood stabilization/psychosis. Patient spoke of his stressors and engaged in therapy both group and individual. Patient was also seen by medical team for history and physical exam. Throughout the course of the hospitalization patient gradually improved with regards to mood, anxiety, sleep and became more future oriented with improved insight and judgment. On the day of discharge patient denied any suicidal or homicidal ideations intent or plan denied any auditory or visual hallucinations. Patient endorsed wanting to live for his health and family. The patient denied any access to guns or weapons. Patient denied any paranoia and did not endorse any delusions. Patient does have a significant history of substance abuse and was counseled on abstaining from all substances including alcohol and marijuana. Rip And Groove Machine Operator spoke with patient in great detail about the potential effects of cannabis and also stimulant such as his Adderall that he is on and how it can affect his mental health and possibly cause psychosis, patient states that he agrees and will attempt to cut back and speak with his outpatient provider about this for other alternatives. Patient was also counseled on the medications and need for regular compliance and was encouraged to follow-up with their outpatient appointment for mental health and also for primary care. Prior to discharge a family meeting will be arranged by social welfare research worker to answer any questions and ensure safety upon discharge. Mental status exam: General Appearance: Patient appears to be overweight,stated age is alert, pleasant, and cooperative. Patient is in no acute distress and has improved hygiene and grooming Behavior: Patient is calmly seated without any agitated behavior. Speech: Patient's speech is fluent and nonpressured. Mood/Affect: Patient reports their mood is "good", affect is congruent and euthymic. Suicidality/Homicidality: Patient denies having any suicidal or homicidal ideation intent or plan. Perceptions: Patient denies any auditory or visual hallucinations. Though content/process: There is no evidence of any delusional thought content and thought process is linear and goal-directed. more future oriented Memory and concentration: AOX3, grossly intact for the purposes of this session. Can spell "WORLD" backwards correctly. Judgment and insight: improved with guarded prognosis Impression: Bipolar disorder, with psychotic features Cannabis use disorder Nicotine dependence Plan: -Continue with discharge today as patient has improved and stabilized psychiatrically and is not currently an imminent threat to himself and/or others. Patient will remain at chronically elevated risk for harm to self and/or others due to his substance abuse. -Continue medications: Zyprexa 5 mg daily at bedtime for mood stabilization/psychosis, Zoloft 100 mg daily for mood/anxiety, BuSpar 10 mg twice a day for anxiety. -Patient was counseled on the need for medication compliance and appropriate follow-up at mental health and also primary care for medical issues. Patient verbalized understanding and agreed. -Social work to arrange for and conduct family meeting to ensure safety upon discharge and answer any questions/concerns. Social work also to arrange for patients follow up appointments with [facility] for psychiatric care along with follow up with primary care provider. -Patient counseled on abstaining from recreational drugs and marijuana and alcohol. Was informed/educated on the adverse effects on their physical and mental health. Patient verbally agreed and understood. -Patient was instructed to return to the hospital or seek immediate medical care if their psychiatric or medical symptoms do worsen or reoccur. Allergies Allergy/AdvReac Type Severity Reaction Status Date / Time No Known Allergies Allergy Verified 08/04/20 10:44 Laboratory Results WBC 6.3 k/uL (3.8-10.6) 11/29/21 09:05 RBC 6.70 m/uL (4.30-5.90) H 11/29/21 09:05 Hgb 13.6 gm/dL (13.0-17.5) 11/29/21 09:05 Hct 44.3 % (39.0-53.0) 11/29/21 09:05 MCV 66.2 fL (80.0-100.0) L 11/29/21 09:05 MCH 20.3 pg (25.0-35.0) L 11/29/21 09:05 MCHC 30.7 g/dL (31.0-37.0) L 11/29/21 09:05 RDW 14.3 % (11.5-15.5) 11/29/21 09:05 Plt Count 221 k/uL (150-450) 11/29/21 09:05 MPV 6.9 11/29/21 09:05 Neutrophils % 72 % 11/29/21 09:05 Lymphocytes % 19 % 11/29/21 09:05 Monocytes % 4 % 11/29/21 09:05 Eosinophils % 3 % 11/29/21 09:05 Basophils % 1 % 11/29/21 09:05 Neutrophils # 4.5 k/uL (1.3-7.7) 11/29/21 09:05 Lymphocytes # 1.2 k/uL (1.0-4.8) 11/29/21 09:05 Monocytes # 0.3 k/uL (0-1.0) 11/29/21 09:05 Eosinophils # 0.2 k/uL (0-0.7) 11/29/21 09:05 Basophils # 0.0 k/uL (0-0.2) 11/29/21 09:05 Hypochromasia Slight 11/29/21 09:05 Microcytosis Marked 11/29/21 09:05 Sodium 141 mmol/L (137-145) 11/29/21 09:05 Potassium 4.3 mmol/L (3.5-5.1) 11/29/21 09:05 Chloride 101 mmol/L (98-107) 11/29/21 09:05 Carbon Dioxide 26 mmol/L (22-30) 11/29/21 09:05 Anion Gap 14 mmol/L 11/29/21 09:05 BUN 13 mg/dL (9-20) 11/29/21 09:05 Creatinine 0.94 mg/dL (0.66-1.25) 11/29/21 09:05 Est GFR (CKD-EPI)AfAm >90 (>60 ml/min/1.73 sqM) 11/29/21 09:05 Est GFR (CKD-EPI)NonAf >90 (>60 ml/min/1.73 sqM) 11/29/21 09:05 Glucose 149 mg/dL (74-99) H 11/29/21 09:[address] Glu mg/dL 132 11/29/21 09:05 Hemoglobin A1c 6.2 % (0.0-6.0) H 11/29/21 09:05 Calcium 9.6 mg/dL (8.4-10.2) 11/29/21 09:05 Total Bilirubin 0.9 mg/dL (0.2-1.3) 11/29/21 09:05 Conjugated Bilirubin 0.0 mg/dL (0.0-0.3) 11/29/21 09:05 Unconjugated Bilirubin 0.8 mg/dL (0.0-1.1) 11/29/21 09:05 Delta Bilirubin 0.1 mg/dL (0.0-0.2) 11/29/21 09:05 AST 55 U/L (17-59) 11/29/21 09:05 ALT 75 U/L (4-49) H 11/29/21 09:05 Alkaline Phosphatase 55 U/L (38-126) 11/29/21 09:05 Total Protein 7.8 g/dL (6.3-8.2) 11/29/21 09:05 Albumin 5.0 g/dL (3.5-5.0) 11/29/21 09:05 Triglycerides 139.00 mg/dL (0.00-149.00) 11/29/21 09:05 Cholesterol 163.00 mg/dL (0.00-200.00) 11/29/21 09:05 LDL Cholesterol, Calc 101.0 mg/dL (0.0-131.0) 11/29/21 09:05 VLDL Cholesterol, Calc 27.80 mg/dL (5.00-40.00) 11/29/21 09:05 HDL Cholesterol 34.20 mg/dL (40.00-60.00) L 11/29/21 09:05 Cholesterol/HDL Ratio 4.77 Ratio 11/29/21 09:05 TSH 3.790 mIU/L (0.465-4.680) 11/29/21 09:05 Vital Signs Temp 97.4 F L 12/02/21 06:46 Pulse 64 12/02/21 06:46 Resp 16 12/02/21 06:46 BP 134/71 12/02/21 06:46 Pulse Ox 99 12/02/21 06:46 FiO2 Intake & Output 12/01/21 12/02/21 12/02/21 18:59 06:59 18:59 Weight 147.2 kg Patient Condition at Discharge: Stable Plan - Discharge Summary New Discharge Prescriptions: New busPIRone HCl [Buspar] 10 mg PO BID 30 Days tab metFORMIN HCL [Glucophage] 500 mg PO BID-W/MEALS 30 Days tab Nicotine 14Mg/24Hr Patch [Habitrol] 1 patch TRANSDERM DAILY 14 Days patch Sertraline [Zoloft] 100 mg PO DAILY 30 Days tab OLANZapine [ZyPREXA] 5 mg PO HS 30 Days tab Continue Omeprazole 40 mg PO DAILY amLODIPine [Norvasc] 5 mg PO DAILY Discontinued Dextroamphetamine/Amphetamine [Adderall Xr] 30 mg PO DAILY Discharge Medication List Omeprazole 40 mg PO DAILY 08/04/20 [History] amLODIPine [Norvasc] 5 mg PO DAILY 08/04/20 [History] Nicotine 14Mg/24Hr Patch [Habitrol] 1 patch TRANSDERM DAILY 14 Days patch 12/02/21 [Rx] OLANZapine [ZyPREXA] 5 mg PO HS 30 Days tab 12/02/21 [Rx] Sertraline [Zoloft] 100 mg PO DAILY 30 Days tab 12/02/21 [Rx] busPIRone HCl [Buspar] 10 mg PO BID 30 Days tab 12/02/21 [Rx] metFORMIN HCL [Glucophage] 500 mg PO BID-W/MEALS 30 Days tab 12/02/21 [Rx] Follow up Appointment(s)/Referral(s): Psychiatry, [facility] [Other] - 12/09/21 9:00 am (Marta Miranda ) Activity/Diet/Wound Care/Special Instructions: Avoid the use of street drugs and alcohol. Take all prescriptions as prescribed. When you are in need of refills on your medications, please contact your medical provider and/or outpatient psychiatrist to have this done. Please go to scheduled outpatient appointment for aftercare treatment. If symptoms return or become worse, call the crisis line at and/or go to the nearest emergency room for evaluation. Discharge Disposition: HOME SELF-CARE
== END 2021-12-02 12:36 | disposition home or self-care (01) | DRG 885 ==
LOC: 3MHU 21:07
PROVIDERS: ADMIT Psychiatry & Neurology Psychiatry; ATTEND Psychiatry & Neurology Psychiatry
DX: F31.5 Bipolar disorder, current episode depressed, severe, with psychotic features (principal); F12.10 Cannabis abuse, uncomplicated; F17.290 Nicotine dependence, other tobacco product, uncomplicated; F17.210 Nicotine dependence, cigarettes, uncomplicated; Z71.51 Drug abuse counseling and surveillance of drug abuser; F41.9 Anxiety disorder, unspecified; I10 Essential (primary) hypertension; S91.012A Laceration without foreign body, left ankle, initial encounter; Z79.899 Other long term (current) drug therapy
CPT/HCPCS: 80053; 80061; 82248; 83036; 84443; 85025

== ENCOUNTER 2022-11-09 20:25 | Inpatient (IN) | payer BC ==
--- NOTE | 2022-11-09 22:09 | ED ---
Psych HPI - General Chief Complaint: Psychiatric Symptoms Stated Complaint: Mental Health Time Seen by Provider: 11/09/22 21:11 Source: EMS Mode of arrival: EMS - History of Present Illness Initial Comments: This patient is a 37-year-old man with history of bipolar disorder who states that he is feeling well and does not know why he is here. The patient states that "my mom wanted me to get checked out." He states he does have recent psychiatric admission at [facility], but after he was released there he has been feeling well. He states he has been taking his medications. He denies hallucinations. He denies suicidal or homicidal ideation MD Complaint: other -: hour(s) Associated Psychiatric Symptoms: none Quality: constant Improves With: none Worsens With: none Associated Symptoms: denies other symptoms - Related Data Home Medications Medication Instructions Recorded Confirmed Omeprazole 40 mg PO DAILY 08/04/20 11/10/22 amLODIPine [Norvasc] 5 mg PO DAILY 08/04/20 11/10/22 Amoxic-Pot Clav 875-125Mg PO DAILY 11/10/22 [Augmentin 875-125] QUEtiapine [SEROquel] 50 mg PO HS 11/10/22 11/10/22 lamoTRIgine [LaMICtal] 100 mg PO HS 11/10/22 11/10/22 Previous Rx's Medication Instructions Recorded Nicotine 14Mg/24Hr Patch [Habitrol] 1 patch TRANSDERM DAILY 14 Days 12/02/21 patch OLANZapine [ZyPREXA] 5 mg PO HS 30 Days tab 12/02/21 Sertraline [Zoloft] 100 mg PO DAILY 30 Days tab 12/02/21 busPIRone HCl [Buspar] 10 mg PO BID 30 Days tab 12/02/21 metFORMIN HCL [Glucophage] 500 mg PO BID-W/MEALS 30 Days tab 12/02/21 Allergies Allergy/AdvReac Type Severity Reaction Status Date / Time No Known Allergies Allergy Verified 11/09/22 20:40 Review of Systems ROS Statement: Those systems with pertinent positive or pertinent negative responses have been documented in the HPI. ROS Other: All systems not noted in ROS Statement are negative. Constitutional: Denies: fever Respiratory: Denies: cough, dyspnea Cardiovascular: Denies: chest pain, edema Gastrointestinal: Denies: abdominal pain, vomiting, diarrhea Genitourinary: Denies: dysuria, frequency Musculoskeletal: Denies: back pain Skin: Denies: rash Neurological: Denies: headache, weakness Psychiatric: Denies: depression, auditory hallucinations, visual hallucinations, homicidal thoughts, suicidal thoughts Past Medical History Past Medical History: No Reported History, Hypertension Additional Past Medical History / Comment(s): hx of Sleep apnea. colononscopy 2022 History of Any Multi-Drug Resistant Organisms: None Reported Past Surgical History: No Surgical Hx Reported Past Anesthesia/Blood Transfusion Reactions: No Reported Reaction Past Psychological History: No Psychological Hx Reported Smoking Status: Vaper Past Drug Use History: Marijuana - Past Family History Family Family Medical History: Hyperlipidemia General Exam General appearance: alert, in no apparent distress Head exam: Present: atraumatic, normocephalic Eye exam: Present: normal appearance. Absent: scleral icterus, conjunctival injection Neck exam: Present: normal inspection Respiratory exam: Present: normal lung sounds bilaterally. Absent: respiratory distress, wheezes, rales, rhonchi, stridor Cardiovascular Exam: Present: regular rate, normal rhythm, normal heart sounds. Absent: systolic murmur, diastolic murmur, rubs, gallop GI/Abdominal exam: Present: soft. Absent: distended, tenderness, guarding, rebound, rigid, mass Extremities exam: Present: normal inspection, normal capillary refill. Absent: pedal edema, calf tenderness Back exam: Present: normal inspection. Absent: CVA tenderness (R), CVA tenderness (L) Neurological exam: Present: alert, oriented X3 Psychiatric exam: Present: normal affect, normal mood. Absent: agitated, anxious, homicidal ideation, suicidal ideation Skin exam: Present: warm, dry, intact, normal color. Absent: rash Course Vital Signs 11/09/22 11/09/22 20:28 23:00 Temperature 98.5 F 98.1 F Pulse Rate 105 H 85 Respiratory 18 Rate Blood Pressure 184/99 147/97 O2 Sat by Pulse 98 97 Oximetry Medical Decision Making - Lab Data Lab Results 11/10/22 Range/Units 01:13 Influenza Type A (PCR) Not Detected (Not Detectd) Influenza Type B (PCR) Not Detected (Not Detectd) RSV (PCR) Not Detected (Not Detectd) SARS-CoV-2 (PCR) Not Detected (Not Detectd) Disposition Clinical Impression: Mood disorder Disposition: ADMITTED IP TO THIS HOSP Condition: Fair Is patient prescribed a controlled substance at d/c from ED?: No
[2022-11-10] MEDS ORDERED: haloperidoL 5 MG TAB PO PRN (02:34)
[2022-11-10] MEDS ORDERED: MAGNESIUM HYDROXIDE 2,400 MG/30 ML CUP PO PRN (02:34)
[2022-11-10] MEDS ORDERED: IBUPROFEN 600 MG TAB PO PRN (02:34)
[2022-11-10] MEDS ORDERED: ACETAMINOPHEN TAB 325 MG TAB PO PRN (02:34)
[2022-11-10] MEDS ORDERED: LORazepam 2 MG/ML INJ IM PRN (02:34)
[2022-11-10] MEDS ORDERED: HALOPERIDOL LACTATE 5 MG/ML 1 ML VIAL IM PRN (02:34)
[2022-11-10 03:38] LABS: Appearance,Urine Clear (Clear); Bilirubin,Urine Negative (Negative); Blood,Urine Negative (Negative); Color,Urine Yellow; Glucose,Urine (UA) Negative (Negative); Ketones,Urine 1+ (Negative); Leukocyte Esterase,Urine Negative (Negative); Nitrite,Urine Negative (Negative); PH, Urine 5.5 (5.0-8.0); Protein,Urine Trace (Negative); Specific Gravity,Urine 1.025 (1.001-1.035); Urobilinogen,Urine <2.0 mg/dL (<2.0)
[2022-11-10 03:48] LABS: Amphetamine Screen,Urine Detected (NotDetected); Barbiturate Screen,Urine Not Detected (NotDetected); Benzodiazepines Screen,Urine Detected (NotDetected); Cocaine Screen,Urine Not Detected (NotDetected); Methadone Screen, Urine Not Detected (NotDetected); Opiate Screen,Urine Not Detected (NotDetected); Oxycodone Screen, Urine Not Detected (NotDetected); Phencyclidine Screen,Urine Not Detected (NotDetected); Tricyclic Antidepressant,Urine Not Detected (NotDetected); Urn Cannabinoid Scrn Detected (NotDetected)
[2022-11-10] MEDS: NICOTINE 14MG/24HR PATCH TRANSDERM SCH (08:09)
--- NOTE | 2022-11-10 12:12 | P.HP ---
Psychiatric H&P - . H&P Date: 11/10/22 History & Physical: Allergies Allergy/AdvReac Type Severity Reaction Status Date / Time No Known Allergies Allergy Verified 11/09/22 20:40 Vital Signs Temp 98.5 F 11/10/22 06:44 Pulse 78 11/10/22 06:44 Resp 20 11/10/22 06:44 BP 148/92 11/10/22 06:44 Pulse Ox 95 11/10/22 06:44 FiO2 Intake & Output 11/09/22 11/10/22 11/10/22 18:59 06:59 18:59 Weight 154.42 kg Laboratory Last Values Urine Color Yellow 11/10/22 02:42 Urine Appearance Clear (Clear) 11/10/22 02:42 Urine pH 5.5 (5.0-8.0) 11/10/22 02:42 Ur Specific [place] 1.025 (1.001-1.035) 11/10/22 02:42 Urine Protein Trace (Negative) H 11/10/22 02:42 Urine Glucose (UA) Negative (Negative) 11/10/22 02:42 Urine Ketones 1+ (Negative) H 11/10/22 02:42 Urine Blood Negative (Negative) 11/10/22 02:42 Urine Nitrite Negative (Negative) 11/10/22 02:42 Urine Bilirubin Negative (Negative) 11/10/22 02:42 Urine Urobilinogen <2.0 mg/dL (<2.0) 11/10/22 02:42 Ur Leukocyte Esterase Negative (Negative) 11/10/22 02:42 Urine Opiates Screen Not Detected (NotDetected) 11/10/22 02:42 Ur Oxycodone Screen Not Detected (NotDetected) 11/10/22 02:42 Urine Methadone Screen Not Detected (NotDetected) 11/10/22 02:42 Ur Propoxyphene Screen Not Detected (NotDetected) 11/10/22 02:42 Ur Barbiturates Screen Not Detected (NotDetected) 11/10/22 02:42 U Tricyclic Antidepress Not Detected (NotDetected) 11/10/22 02:42 Ur Phencyclidine Scrn Not Detected (NotDetected) 11/10/22 02:42 Ur Amphetamines Screen Detected (NotDetected) H 11/10/22 02:42 U Methamphetamines Scrn Not Detected (NotDetected) 11/10/22 02:42 U Benzodiazepines Scrn Detected (NotDetected) H 11/10/22 02:42 Urine Cocaine Screen Not Detected (NotDetected) 11/10/22 02:42 U Marijuana (THC) Screen Detected (NotDetected) H 11/10/22 02:42 Influenza Type A (PCR) Not Detected (Not Detectd) 11/10/22 01:13 Influenza Type B (PCR) Not Detected (Not Detectd) 11/10/22 01:13 RSV (PCR) Not Detected (Not Detectd) 11/10/22 01:13 SARS-CoV-2 (PCR) Not Detected (Not Detectd) 11/10/22 01:13 11/10/22 12:12 IDENTIFYING DATA: Patient is a , self-employed, 37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 HPI: Patient presented to the hospital on 11/10/2022 for psychiatric evaluation. Reportedly, the patient was brought in because of a "domestic situation apparently." The patient was a grossly poor historian when presenting to EPS and was religiously preoccupied and very paranoid. He was subsequently admitted onto our psychiatric unit. However, the patient was agreeable to signing himself voluntarily onto the unit. On evaluation on the psychiatric unit, the patient is overtly manic. When asked for the reason why he was brought to the hospital, the patient replies "I was fighting Lucifer and was put in timeout." The patient was unable to provide any clear meaning to his words. He states that "God decided it was time for me to go to the hospital." He does however report that his sleep has been poor. He does report significant symptoms of leslie including racing thoughts, excessive energy, and grandiosity. Furthermore, the patient does acknowledge auditory hallucinations in the form of God speaking to him. He denies any command type hallucinations. He reports "I guess I see things" when inquiring about visual hallucinations. He refuses to elaborate. In regards to paranoia, the patient denies any overt symptoms currently to this provider. He reports that he has "followers, and the protestant sense, like they believe in me." He is currently not endorsing any significant symptoms of depression. He denies any suicidal or homicidal ideation, intention, and/or plan. He does report a prior attempt at suicide back in 2010 by overdosing on Xanax. He is agreeable to being started on Seroquel again and taking lithium. PAST PSYCHIATRIC HISTORY: Patient states that he has been previously diagnosed with ADHD. He recalls being. She prescribed Adderall, Seroquel, Zyprexa, Zoloft, and Lamictal. He is currently prescribed his medications through [facility] and is seen by a PA. Unable to determine previous psychiatric hospitalizations at this time. He reports one prior attempt at suicide by overdosing on Xanax back in 2010. PMH: Past Medical History: No Reported History, Hypertension Additional Past Medical History / Comment(s): hx of Sleep apnea. colononscopy 2022 History of Any Multi-Drug Resistant Organisms: None Reported Past Surgical History: No Surgical Hx Reported Past Anesthesia/Blood Transfusion Reactions: No Reported Reaction Past Psychological History: No Psychological Hx Reported Smoking Status: Vaper Past Drug Use History: Marijuana ALLERGIES: NKDA CHEMICAL DEPENDENCY HISTORY: Patient has a history of marijuana use. He is currently positive for benzodiazepines and amphetamines but is prescribed Adder all and Ativan from his outpatient physician greenhouse assistant. FAMILY PSYCHIATRIC/SUBSTANCE USE HISTORY: The patient reports that his brother has ADHD. SOCIAL HISTORY: Patient was born in [place] and raised in [place]. He currently resides in [place], [place]. He is to his Romi for the past 7 years. He reports that he has a 10-year-old son named Jai who is turning 11. He is currently self-employed. When asked about his profession, the patient reports that he is "working for God." MENTAL STATUS EXAM: General Appearance: Patient appears to be stated age is alert, directable, and attempts to cooperate. Patient appears to have fair hygiene and grooming. Patient is tall and heavyset. Behavior: Patient is seated without any agitated behavior. Eye contact is chino ropriate, slightly intense. Speech: Patient's speech is fluent and nonpressured. Mood/Affect: Patient reports their mood is "actually I feel good," affect is blunted. Suicidality/Homicidality: Patient denies any suicidal or homicidal ideation, intention, and/or plan Perceptions: Patient reports both auditory and visual hallucinations. Though content/process: The patient is endorsing overt grandiosity, protestant preoccupation, and delusional thoughts. Memory and concentration: Grossly poor at this time. Judgment and insight: Fair STRENGTHS/WEAKNESSES: Strength is that the patient appears to be agreeable with treatment and is open with outpatient services. Weakness is that the patient has severe mental illness. INTELLECT: average IMPRESSIONS: Schizoaffective disorder, bipolar type Suspect exacerbation of leslie due to psychostimulants. PLAN: -Patient is admitted under voluntary status to MHU for stabilization of psychiatric symptoms and safety. Patient signed adult voluntary form and medication consent and is placed in patient's chart. -Medications : Will start patient on [place] 450 mg by mouth twice a day for mood stabilization Seroquel 200 mg daily at bedtime when stabilization/psychosis Requip 0.25 mg daily at bedtime for restless leg syndrome -Ativan and Haldol PRN for agitation/aggression -Patient was counselled on substance abuse and desired to cut back on use -Patient was informed of the risks, benefits and side effects of the medication and patient verbally consented to taking the medications. Patient signed med consent form and was placed in chart. -Internal Medicine consult to perform medical evaluation and physical. -NRT - nicotine patch - on board for discharge planning. Encourage patient to participate in groups to work on coping skills. 11/10/22 12:12
[2022-11-10] MEDS: LORazepam 1 MG TAB PO PRN (18:27)
[2022-11-10] MEDS: LITHIUM CARBONATE 150 MG CAP PO SCH (21:02)
[2022-11-10] MEDS: QUEtiapine 200 MG TAB PO SCH (21:03)
[2022-11-11] MEDS: QUEtiapine 200 MG TAB PO SCH (00:23)
[2022-11-11] MEDS: LITHIUM CARBONATE 150 MG CAP PO SCH ×2 (00:23→09:07)
--- NOTE | 2022-11-11 00:43 | P.CONS ---
History of Present Illness - Reason for Consult Consult date: 11/11/22 - History of Present Illness The patient is a 37-year-old male with a PMH of type II DM, hypertension, and bipolar disorder who presented to the emergency room for psychiatric evaluation. The patient was admitted to the mental health unit where he was seen and evaluated. The patient reports that his mother was concerned about him as "she thought I was going crazy". He reports he is on a mission to "make Erica great again". He denied any physical complaints at the time of interview. He denied tobacco, substance, or alcohol use. Urine tox in the emergency room however was positive for marijuana, benzodiazepines, and amphetamines. Review of systems: Pertinent positives and negatives as discussed in HPI, a complete review of systems was performed and all other systems are negative. Physical examination: General: non toxic, no distress, appears at stated age, morbidly obese Derm: no unusual rashes/lesions, no unusual ecchymoses, warm, dry Head: atraumatic, normocephalic, symmetric Eyes: EOMI, no lid lag, anicteric sclera ENT: Nose and ears atraumatic, no thrush, no pharyngeal erythema Neck: trachea midline, supple Mouth: no lip lesion, mucus membranes moist Cardiovascular: S1S2 reg, no murmur, no edema Lungs: CTA bilateral, no rhonchi, no rales , no accessory muscle use Abdominal: soft, nontender to palpation, no guarding Ext: no gross muscle atrophy, no contractures, Neuro: No gross focal neuro deficits noted Psych: Alert, oriented Assessment: Polysubstance abuse Psychosis Chronic conditions: Type II DM, hypertension Plan: Advised on the importance of cessation Continue with home medications Defer management of psychosis to primary psychiatry service Thank you for allowing us to participate in the care of this patient. We will follow peripherally. Do not hesitate to contact us with questions. Someone can be reached from the [facility] hospitalist group at all hours of the day at [phone]. Past Medical History Past Medical History: No Reported History, Hypertension Additional Past Medical History / Comment(s): hx of Sleep apnea. colononscopy 20 23 History of Any Multi-Drug Resistant Organisms: None Reported Past Surgical History: No Surgical Hx Reported Past Anesthesia/Blood Transfusion Reactions: No Reported Reaction Past Psychological History: No Psychological Hx Reported Smoking Status: Vaper Past Drug Use History: Marijuana - Past Family History Family Family Medical History: Hyperlipidemia Medications and Allergies Home Medications Medication Instructions Recorded Confirmed Type Omeprazole 40 mg PO DAILY 08/04/20 11/10/22 History amLODIPine [Norvasc] 5 mg PO DAILY 08/04/20 11/10/22 History Nicotine 14Mg/24Hr Patch [Habitrol] 1 patch TRANSDERM DAILY 14 Days 12/02/21 11/10/22 Rx patch OLANZapine [ZyPREXA] 5 mg PO HS 30 Days tab 12/02/21 11/10/22 Rx Sertraline [Zoloft] 100 mg PO DAILY 30 Days tab 12/02/21 11/10/22 Rx busPIRone HCl [Buspar] 10 mg PO BID 30 Days tab 12/02/21 11/10/22 Rx metFORMIN HCL [Glucophage] 500 mg PO BID-W/MEALS 30 Days tab 12/02/21 11/10/22 Rx Amoxic-Pot Clav 875-125Mg PO DAILY 11/10/22 History [Augmentin 875-125] QUEtiapine [SEROquel] 50 mg PO HS 11/10/22 11/10/22 History lamoTRIgine [LaMICtal] 100 mg PO HS 11/10/22 11/10/22 History Allergies Allergy/AdvReac Type Severity Reaction Status Date / Time No Known Allergies Allergy Verified 11/09/22 20:40 Physical Exam Vitals: Vital Signs Temp Pulse Resp BP Pulse Ox 11/10/22 06:44 98.5 F 78 20 148/92 95 11/10/22 03:33 98.3 F 83 18 156/105 95 Results Labs: Abnormal Lab Results - Last 24 Hours (Table) 11/10/22 11/10/22 Range/Units 02:42 02:42 Urine Protein Trace H (Negative) Urine Ketones 1+ H (Negative) Ur Amphetamines Screen Detected H (NotDetected) U Benzodiazepines Scrn Detected H (NotDetected) U Marijuana (THC) Screen Detected H (NotDetected)
[2022-11-11 08:18] LABS: Basophils % (A) 0 %; Eosinophils # (A) 0.1 k/uL (0-0.7); Eosinophils % (A) 1 %; HGB 13.2 gm/dL (13.0-17.5); Lymphocytes % (A) 24 %; MCH 20.6 pg (25.0-35.0); MCHC 32.2 g/dL (31.0-37.0); MCV 64.1 fL (80.0-100.0); Mean Platelet Volume 7.5; Microcytosis Marked; Monocytes # (A) 0.4 k/uL (0-1.0); Monocytes % (A) 5 %; Neutrophils # (A) 5.7 k/uL (1.3-7.7); Neutrophils % (A) 68 %; Platelet Count 181 k/uL (150-450); RDW 15.1 % (11.5-15.5); WBC 8.3 k/uL (3.8-10.6)
[2022-11-11 08:32] LABS: ALT 84 U/L (4-49); AST 59 U/L (17-59); African American GFR (CKD) >90 (>60 ml/min/1.73 sqM); Alkaline Phosphatase 52 U/L (38-126); Anion Gap 11 mmol/L; Bilirubin, Delta 0.3 mg/dL (0.0-0.2); Blood Urea Nitrogen 14 mg/dL (9-20); Calcium 9.6 mg/dL (8.4-10.2); Carbon Dioxide 26 mmol/L (22-30); Chloride 105 mmol/L (98-107); Glucose 122 mg/dL (74-99); Non-African American GFR(CKD) >90 (>60 ml/min/1.73 sqM); Potassium 4.5 mmol/L (3.5-5.1); Sodium 142 mmol/L (137-145); Total Bilirubin 1.3 mg/dL (0.2-1.3); Total Protein 7.8 g/dL (6.3-8.2)
[2022-11-11] MEDS: metFORMIN 500 MG TAB PO SCH ×2 (09:08→21:29)
[2022-11-11] MEDS: amLODIPine 5 MG TAB PO SCH (09:08)
[2022-11-11] MEDS: NICOTINE 14MG/24HR PATCH TRANSDERM SCH (09:09)
[2022-11-11] MEDS ORDERED: LORazepam 2 MG/ML INJ IM PRN (09:33)
--- NOTE | 2022-11-11 11:48 | P.PN ---
Progress Note - Text Progress Note Date: 11/11/22 Interval History: Patient was seen attending group, accompanied by one to one supervision, and was directable and agreeable to speak with marine underwriter in the office. The patient was noted by staff to have an episode of severe agitation last night. As per staff notes, "the patient entered the dining room yelling, 'Who wants to get their teeth punched in?' This led to a brief verbal exchange between patient and appear. The patient threw to carafes of coffee at the floor as hard as he could." He was eventually descalated and placed on one-to-one supervision. The patient is unable to recall the events of yesterday. He vehemently denies any episodes of agitation. He becomes very irritated when asked about this situation. The patient is primarily concerned about feeling overly sedated on Seroquel. He is asking that his medications are decreased. He was offered the alternative to switch to risperidone. The patient is currently irritable. He continues to present with roman catholic preoccupation and very poor insight. Mental Status Exam: General Appearance: Patient appears to be stated age, however is difficult to direct. Patient appears to have fair hygiene and grooming. Patient is tall and heavyset. Behavior: Patient displays slightly elevated psychomotor activity. Speech: Patient's speech is repetitive and monotone. Mood/Affect: Mood is "I'm not manic." Affect is irritable and intense. Suicidality/Homicidality: Patient reports no suicidal or homicidal ideation. Perceptions: Patient denies any visual hallucinations are very continues to report auditory hallucinations. Though content/process: The patient appears to be religiously preoccupied, delus ional, and suspicious of others. Very guarded. Paranoid. Memory and concentration: Grossly poor. Judgment and insight: Grossly poor. Vital Signs Temp 98.5 F 11/10/22 06:44 Pulse 78 11/10/22 06:44 Resp 20 11/10/22 06:44 BP 148/92 11/10/22 06:44 Pulse Ox 95 11/10/22 06:44 FiO2 Laboratory Results WBC 8.3 k/uL (3.8-10.6) 11/11/22 07:55 RBC 6.40 m/uL (4.30-5.90) H 11/11/22 07:55 Hgb 13.2 gm/dL (13.0-17.5) 11/11/22 07:55 Hct 41.0 % (39.0-53.0) 11/11/22 07:55 MCV 64.1 fL (80.0-100.0) L 11/11/22 07:55 MCH 20.6 pg (25.0-35.0) L 11/11/22 07:55 MCHC 32.2 g/dL (31.0-37.0) 11/11/22 07:55 RDW 15.1 % (11.5-15.5) 11/11/22 07:55 Plt Count 181 k/uL (150-450) 11/11/22 07:55 MPV 7.5 11/11/22 07:55 Neutrophils % 68 % 11/11/22 07:55 Lymphocytes % 24 % 11/11/22 07:55 Monocytes % 5 % 11/11/22 07:55 Eosinophils % 1 % 11/11/22 07:55 Basophils % 0 % 11/11/22 07:55 Neutrophils # 5.7 k/uL (1.3-7.7) 11/11/22 07:55 Lymphocytes # 2.0 k/uL (1.0-4.8) 11/11/22 07:55 Monocytes # 0.4 k/uL (0-1.0) 11/11/22 07:55 Eosinophils # 0.1 k/uL (0-0.7) 11/11/22 07:55 Basophils # 0.0 k/uL (0-0.2) 11/11/22 07:55 Microcytosis Marked 11/11/22 07:55 Sodium 142 mmol/L (137-145) 11/11/22 07:55 Potassium 4.5 mmol/L (3.5-5.1) 11/11/22 07:55 Chloride 105 mmol/L (98-107) 11/11/22 07:55 Carbon Dioxide 26 mmol/L (22-30) 11/11/22 07:55 Anion Gap 11 mmol/L 11/11/22 07:55 BUN 14 mg/dL (9-20) 11/11/22 07:55 Creatinine 0.91 mg/dL (0.66-1.25) 11/11/22 07:55 Est GFR (CKD-EPI)AfAm >90 (>60 ml/min/1.73 sqM) 11/11/22 07:55 Est GFR (CKD-EPI)NonAf >90 (>60 ml/min/1.73 sqM) 11/11/22 07:55 Glucose 122 mg/dL (74-99) H 11/11/22 07:55 Calcium 9.6 mg/dL (8.4-10.2) 11/11/22 07:55 Total Bilirubin 1.3 mg/dL (0.2-1.3) 11/11/22 07:55 Conjugated Bilirubin 0.0 mg/dL (0.0-0.3) 11/11/22 07:55 Unconjugated Bilirubin 1.0 mg/dL (0.0-1.1) 11/11/22 07:55 Delta Bilirubin 0.3 mg/dL (0.0-0.2) H 11/11/22 07:55 AST 59 U/L (17-59) 11/11/22 07:55 ALT 84 U/L (4-49) H 11/11/22 07:55 Alkaline Phosphatase 52 U/L (38-126) 11/11/22 07:55 Total Protein 7.8 g/dL (6.3-8.2) 11/11/22 07:55 Albumin 5.0 g/dL (3.5-5.0) 11/11/22 07:55 TSH 6.880 mIU/L (0.465-4.680) H 11/11/22 07:55 Free T4 1.17 ng/dL (0.78-2.19) 11/11/22 07:55 Urine Color Yellow 11/10/22 02:42 Urine Appearance Clear (Clear) 11/10/22 02:42 Urine pH 5.5 (5.0-8.0) 11/10/22 02:42 Ur Specific [place] 1.025 (1.001-1.035) 11/10/22 02:42 Urine Protein Trace (Negative) H 11/10/22 02:42 Urine Glucose (UA) Negative (Negative) 11/10/22 02:42 Urine Ketones 1+ (Negative) H 11/10/22 02:42 Urine Blood Negative (Negative) 11/10/22 02:42 Urine Nitrite Negative (Negative) 11/10/22 02:42 Urine Bilirubin Negative (Negative) 11/10/22 02:42 Urine Urobilinogen <2.0 mg/dL (<2.0) 11/10/22 02:42 Ur Leukocyte Esterase Negative (Negative) 11/10/22 02:42 Urine Opiates Screen Not Detected (NotDetected) 11/10/22 02:42 Ur Oxycodone Screen Not Detected (NotDetected) 11/10/22 02:42 Urine Methadone Screen Not Detected (NotDetected) 11/10/22 02:42 Ur Propoxyphene Screen Not Detected (NotDetected) 11/10/22 02:42 Ur Barbiturates Screen Not Detected (NotDetected) 11/10/22 02:42 U Tricyclic Antidepress Not Detected (NotDetected) 11/10/22 02:42 Ur Phencyclidine Scrn Not Detected (NotDetected) 11/10/22 02:42 Ur Amphetamines Screen Detected (NotDetected) H 11/10/22 02:42 U Methamphetamines Scrn Not Detected (NotDetected) 11/10/22 02:42 U Benzodiazepines Scrn Detected (NotDetected) H 11/10/22 02:42 Urine Cocaine Screen Not Detected (NotDetected) 11/10/22 02:42 U Marijuana (THC) Screen Detected (NotDetected) H 11/10/22 02:42 Influenza Type A (PCR) Not Detected (Not Detectd) 11/10/22 01:13 Influenza Type B (PCR) Not Detected (Not Detectd) 11/10/22 01:13 RSV (PCR) Not Detected (Not Detectd) 11/10/22 01:13 SARS-CoV-2 (PCR) Not Detected (Not Detectd) 11/10/22 01:13 Allergies Allergy/AdvReac Type Severity Reaction Status Date / Time No Known Allergies Allergy Verified 11/09/22 20:40 Assessment Schizoaffective disorder, bipolar type Suspect exacerbation of leslie due to psychostimulants. Plan: -Patient continues to meet criteria for inpatient psychiatric admission for symptom stabilization and safety. Patient has signed adult voluntary form and medication consent and was placed in patient's chart. -Medications: Increase lithium to 600 mg by mouth twice a day for mood stabilization Change Seroquel to Risperdal 2 mg by mouth twice a day for mood stabilization/psychosis Requip 0.25 mg by mouth at bedtime for restless leg syndrome -When necessary Ativan and Haldol for agitation/aggression. -NRT - nicotine patch -SW on board for discharge planning. Encouraged the patient to participate in milieu.
[2022-11-11 15:00] LABS: Chol/HDL Ratio 4.64 Ratio; LDL Cholesterol,Calculated 102.1 mg/dL (0.0-131.0)
[2022-11-11] MEDS: MAG HYDROX/AL HYDROX/SIMETH 30 ML CUP PO PRN (16:32)
[2022-11-11] MEDS ORDERED: QUEtiapine 200 MG TAB PO SCH (21:00)
[2022-11-11] MEDS: LITHIUM CARBONATE 300 MG CAP PO SCH (21:29)
[2022-11-11] MEDS: risperiDONE 2 MG TAB PO SCH (21:29)
[2022-11-12] MEDS: metFORMIN 500 MG TAB PO SCH ×2 (08:38→21:01)
[2022-11-12] MEDS: MAG HYDROX/AL HYDROX/SIMETH 30 ML CUP PO PRN ×2 (08:38→21:07)
[2022-11-12] MEDS: LITHIUM CARBONATE 300 MG CAP PO SCH ×2 (08:38→21:03)
[2022-11-12] MEDS: amLODIPine 5 MG TAB PO SCH (08:38)
[2022-11-12] MEDS: NICOTINE 14MG/24HR PATCH TRANSDERM SCH (08:38)
[2022-11-12] MEDS: risperiDONE 2 MG TAB PO SCH ×2 (08:38→21:01)
--- NOTE | 2022-11-12 11:21 | P.PN ---
Progress Note - Text Progress Note Date: 11/12/22 Interval History: Patient was seen in his room and agreeable to speak with the keno writer in his room. Currently, the patient is not reporting any suicidal or homicidal ideation, intention, and/or plan. He is not reporting any auditory or visual hallucinations. He denies any paranoia or other delusions. He reports improved sleep. He has been adherent with his medications and is not reporting any significant side effects. The patient reports that he was previously prescribed an antibiotic that he was supposed to be taking prior to coming to the hospital. He states that he was informed that he has diverticulitis. He does report generalized abdominal pain but is denying any other issues or concerns. He denies any fevers or chills. He would prefer that he is continued on his antibiotic for the short-term. He is not forthcoming with any bizarre or mu-ism delusions today. He is agreeable with the treatment plan. Despite elevated blood pressure, the patient denies any chest pain, shortness of breath, blurry vision, headache, or palpitations. Mental Status Exam: General Appearance: Patient appears to be stated age, directable, and cooperative. Patient appears to have fair hygiene and grooming. Patient is tall and heavyset. Behavior: Patient displays slightly elevated psychomotor activity. Speech: Patient's speech is spontaneous with normal rate and volume. Nonpressured. Mood/Affect: Mood is "feeling good." Affect is euthymic and friendly Suicidality/Homicidality: Patient reports no suicidal or homicidal ideation. Perceptions: Patient denies any visual hallucinations are very continues to report auditory hallucinations. Though content/process: Linear and logical in short conversation today. Memory and concentration: Improved Judgment and insight: Improving Vital Signs Temp 97.9 F 11/11/22 23:15 Pulse 88 11/11/22 23:15 Resp 17 11/11/22 23:15 BP 165/112 11/12/22 08:41 Pulse Ox 97 11/11/22 23:15 FiO2 Laboratory Results - Last 24 Hours 11/11/22 11/11/22 11/11/22 07:55 07:55 07:[address] Glu mg/dL 140 Hemoglobin A1c 6.5 H Triglycerides 113.00 Cholesterol 159.00 LDL Cholesterol, Calc 102.1 VLDL Cholesterol, Calc 22.60 HDL Cholesterol 34.30 L Cholesterol/HDL Ratio 4.64 Free T4 1.17 Assessment Schizoaffective disorder, bipolar type Suspect exacerbation of leslie due to psychostimulants. Plan: -Patient continues to meet criteria for inpatient psychiatric admission for symptom stabilization and safety. Patient has signed adult voluntary form and medication consent and was placed in patient's chart. -Medications: Continue [place] 600 mg by mouth twice a day for mood stabilization Continue Risperdal 2 mg by mouth twice a day for mood stabilization/psychosis consider transition to long-acting injectable; Requip 0.25 mg by mouth at bedtime for restless leg syndrome -When necessary Ativan and Haldol for agitation/aggression. -NRT - nicotine patch -SW on board for discharge planning. Encouraged the patient to participate in milieu.
[2022-11-12] MEDS ORDERED: AMOXIC-POT CLAV 875-125MG 1 EACH TAB PO STA (13:51)
[2022-11-12] MEDS: LORazepam 1 MG TAB PO PRN (17:41)
[2022-11-13] MEDS: LITHIUM CARBONATE 300 MG CAP PO SCH ×2 (08:21→20:04)
[2022-11-13] MEDS: risperiDONE 2 MG TAB PO SCH (08:21)
[2022-11-13] MEDS: AMOXIC-POT CLAV 875-125MG 1 EACH TAB PO SCH (08:21)
[2022-11-13] MEDS: NICOTINE 14MG/24HR PATCH TRANSDERM SCH (08:21)
[2022-11-13] MEDS: metFORMIN 500 MG TAB PO SCH ×2 (08:21→20:04)
[2022-11-13] MEDS: amLODIPine 5 MG TAB PO SCH (08:21)
[2022-11-13] MEDS ORDERED: risperiDONE 90 MG SYR KIT (NO COST) PHARMACY STOCK SQ ONE (09:22)
[2022-11-13] MEDS: MAG HYDROX/AL HYDROX/SIMETH 30 ML CUP PO PRN ×3 (10:49→20:05)
--- NOTE | 2022-11-13 11:21 | P.PN ---
Progress Note - Text Progress Note Date: 11/13/22 Interval History: Patient was seen in his room and agreeable to speak with the bond underwriter in his room. The patient is currently denying any suicidal or homicidal ideation, intention, and/or plan. He is not reporting any auditory or visual hallucinations. He reports no paranoia or other delusions. He has been in adherent with his medication and reports mild sedation as a side effect. He was informed that risperidone perseris is less likely to be sedating as it is steadily released. He is agreeable to transitioning to the long-acting injectable. He is also agreeable to having his lithium and his blood work performed. He is not reporting any medical issues or concerns. He reports no issues regarding his sleep or his appetite. Mental Status Exam: General Appearance: Patient appears to be stated age, directable, and cooperative. Patient appears to have fair hygiene and grooming. Patient is tall and heavyset. Behavior: Patient displays normal psychomotor activity. Speech: Patient's speech is spontaneous with normal rate and volume. Nonpressured. Mood/Affect: Mood is "feeling pretty good" Affect is euthymic and friendly Suicidality/Homicidality: Patient reports no suicidal or homicidal ideation. Perceptions: Patient denies any visual hallucinations are very continues to report auditory hallucinations. Though content/process: Linear and logical in short conversation today. Memory and concentration: Improved Judgment and insight: Improving Vital Signs Temp 96.7 F L 11/13/22 08:30 Pulse 103 H 11/13/22 10:50 Resp 16 11/13/22 08:30 BP 130/83 11/13/22 10:50 Pulse Ox 97 11/13/22 08:30 FiO2 Assessment Schizoaffective disorder, bipolar type Suspect exacerbation of leslie due to psychostimulants. Plan: -Patient continues to meet criteria for inpatient psychiatric admission for sym ptom stabilization and safety. Patient has signed adult voluntary form and medication consent and was placed in patient's chart. -Medications: Continue [place] 600 mg by mouth twice a day for mood stabilization. Diaz level and BMP to be drawn today Discontinue oral Risperdal and administer risperidone perseris 90 mg SQ today. Requip 0.25 mg by mouth at bedtime for restless leg syndrome -When necessary Ativan and Haldol for agitation/aggression. -NRT - nicotine patch -SW on board for discharge planning. Encouraged the patient to participate in milieu.
[2022-11-13 12:04] LABS: African American GFR (CKD) >90 (>60 ml/min/1.73 sqM); Anion Gap 12 mmol/L; Blood Urea Nitrogen 11 mg/dL (9-20); Carbon Dioxide 25 mmol/L (22-30); Chloride 101 mmol/L (98-107); Glucose 79 mg/dL (74-99); Lithium 0.6 mmol/L; Non-African American GFR(CKD) >90 (>60 ml/min/1.73 sqM); Potassium 4.5 mmol/L (3.5-5.1); Sodium 138 mmol/L (137-145)
[2022-11-14 06:57] VITALS: RESP 19; TEMP 98.7
[2022-11-14] MEDS ORDERED: PANTOPRAZOLE 40 MG TABLET PO SCH (07:30)
[2022-11-14] MEDS: metFORMIN 500 MG TAB PO SCH (08:02)
[2022-11-14] MEDS: amLODIPine 5 MG TAB PO SCH (08:02)
[2022-11-14] MEDS: LITHIUM CARBONATE 300 MG CAP PO SCH (08:02)
[2022-11-14] MEDS: AMOXIC-POT CLAV 875-125MG 1 EACH TAB PO SCH (08:03)
[2022-11-14] MEDS: NICOTINE 14MG/24HR PATCH TRANSDERM SCH (08:03)
[2022-11-14 08:04] VITALS: BP 147/96; PULSE 97
--- NOTE | 2022-11-14 12:04 | P.DS ---
Providers Date of admission: 11/10/22 02:31 Expected date of discharge: 11/14/22 Attending physician: Michael Reed MD Consults: 11/10/22 02:34 Consult Physician Routine Consulting Provider: Jake Ramirez Consult Reason/Comments: medical H&P Do you want consulting provider notified?: Yes Primary care physician: Cristine Wilks - Discharge Diagnosis(es) (1) Schizoaffective disorder, bipolar type Status: Acute Priority: High (2) Stimulant-induced psychotic disorder with delusions Status: Acute Priority: High (3) Cannabis use disorder Status: Chronic Priority: Medium Hospital Course: Admission HPI: Patient is a , self-employed, 37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 Patient presented to the hospital on 11/10/2022 for psychiatric evaluation. Reportedly, the patient was brought in because of a "domestic situation apparently." The patient was a grossly poor historian when presenting to EPS and was religiously preoccupied and very paranoid. He was subsequently admitted onto our psychiatric unit. However, the patient was agreeable to signing himself voluntarily onto the unit. On evaluation on the psychiatric unit, the patient is overtly manic. When asked for the reason why he was brought to the hospital, the patient replies "I was fighting Lucifer and was put in timeout." The patient was unable to provide any clear meaning to his words. He states that "God decided it was time for me to go to the hospital." He does however report that his sleep has been poor. He does report significant symptoms of leslie including racing thoughts, excessive energy, and grandiosity. Furthermore, the patient does acknowledge auditory hallucinations in the form of God speaking to him. He denies any command type hallucinations. He reports "I guess I see things" when inquiring about visual hallucinations. He refuses to elaborate. In regards to paranoia, the patient denies any overt symptoms currently to this provider. He reports that he has "followers, and the spiritism sense, like they believe in me." He is currently not endorsing any significant symptoms of depression. He denies any suicidal or homicidal ideation, intention, and/or plan. He does report a prior attempt at suicide back in 2010 by overdosing on Xanax. He is agreeable to being started on Seroquel again and taking lithium. PAST PSYCHIATRIC HISTORY: Patient states that he has been previously diagnosed with ADHD. He recalls being. She prescribed Adderall, Seroquel, Zyprexa, Zoloft, and Lamictal. He is currently prescribed his medications through [facility] and is seen by a PA. Unable to determine previous psychiatric hospitalizations at this time. He reports one prior attempt at suicide by overdosing on Xanax back in 2010. Hospital course: Upon admission to the unit patient was initially presenting as overtly manic, grandiose, paranoid, and very religiously preoccupied. Patient was however directable and agreeable to commence treatment. He was started on a regimen of Seroquel and lithium for mood stabilization and psychosis. Requip was started for restless leg syndrome. However, the patient displayed severe agitation requiring one-to-one supervision after an outburst in the cafeteria where he threw carafes of coffee and threatened violence. The patient was agitated because he felt that he is being overly sedated with Seroquel. He was however agreeable to transitioning from Seroquel to risperidone. On this regimen of risperidone and lithium, the patient despite significant improvement in regards to his target symptoms of leslie and agitation. He became less religiously preoccupied and was much more grounded in reality. He developed better insight and judgment. He was agreeable to transitioning to risperidone perseris and received the first dose on 11/13/2022. He was also agreeable to having his blood drawn for evaluation of lithium levels. On the day of discharge, the patient is not reporting any or plan. He is not reporting any auditory or visual hallucinations. He is denying any paranoia or other delusions. He has been adherent with his medication and is not reporting any significant side effects at this time. He denies any access to firearms or other weapons. He reports that he is eating and sleeping well. He is alert and oriented in all spheres. The patient does have a significant history of substance abuse and was counseled at great length on abstaining from all substances, in particular marijuana. Furthermore, he was counseled on abstaining from stimulant medications as this may exacerbate his bipolar disorder and swing him into leslie. He was counseled at length on the point of medication adherence and appropriate outpatient follow-up. The patient no longer met criteria for continued inpatient psychiatric hospitalization, he was subsequently discharged after appropriate safety planning. Mental status exam: General Appearance: Patient appears to be stated age is alert, pleasant, and cooperative. Patient is in no acute distress and has fair hygiene and grooming. Patient is heavyset and tall. Behavior: Patient is calmly seated without any agitated behavior. Speech: Patient's speech is fluent and nonpressured. Mood/Affect: Patient reports their mood is "much better", affect is congruent and euthymic to bright. Suicidality/Homicidality: Patient is vehemently denying any suicidal or homicidal ideation, intention, and/or plan. Perceptions: Patient denies any auditory or visual hallucinations. Though content/process: There is no evidence of any delusional thought content and thought process is linear and goal-directed. The patient is future and goal oriented. Memory and concentration: AOX3, grossly intact for the purposes of this session. Can spell "WORLD" backwards correctly. Judgment and insight: Improved with guarded prognosis Impression: Schizoaffective disorder, bipolar type Suspect exacerbation of leslie due to psychostimulants. Plan: -Continue with discharge today as patient has improved and stabilized psychiatrically and is not currently an imminent threat to himself and/or others. Patient will remain at chronically elevated risk due to the severity of his mental illness as well as his stimulant and marijuana use. -Continue medications: Redwood 600 mg by mouth twice a day for mood stabilization Risperidone Perseris 90 mg SQ qMonthly. The next dose is due on 12/11/2022. Requip when necessary for restless leg syndrome Augmentin for 3 days for diverticulitis as per patient -Patient was counseled on the need for medication compliance and appropriate follow-up at mental health and also primary care for medical issues. Patient verbalized understanding and agreed. -Social work to arrange for and conduct family meeting to ensure safety upon discharge and answer any questions/concerns. Social work also to arrange for patients follow up appointments with [facility] for psychiatric care along with follow up with primary care provider. -Patient counseled on abstaining from recreational drugs and marijuana and alcohol. Was informed/educated on the adverse effects on their physical and mental health. Patient verbally agreed and understood. -Patient was instructed to return to the hospital or seek immediate medical care if their psychiatric or medical symptoms do worsen or reoccur. -Psychoeducation and supportive therapy provided to patient. Risks and benefits of pharmacological treatment versus the risks and benefits of nontreatment weighed and discussed. Informed consent discussion held. Common side effects of psychotropics discussed such as, but not limited to headache, GI disturbance, sexual dysfunction, movement disorders, sedation, and orthostatic hypotension. Life threatening and blackbox warnings of prescribed medications also discussed. Potential risks of operating a vehicle or heavy machinery discussed with patient at length. Advised on importance of compliance and a reliable and responsible manner. Patient advised to review FDA consumer labeling of all medications prior to taking. Patient verbalized understanding of potential risks, and agrees with current treatment plan. Patient advised to medically contact physician/emergency personnel if any acute changes in condition occur. Vital Signs Temp 98.7 F 11/14/22 06:56 Pulse 97 11/14/22 08:04 Resp 19 11/14/22 06:56 BP 147/96 11/14/22 08:04 Pulse Ox 95 11/14/22 06:56 FiO2 Laboratory Results WBC 8.3 k/uL (3.8-10.6) 11/11/22 07:55 RBC 6.40 m/uL (4.30-5.90) H 11/11/22 07:55 Hgb 13.2 gm/dL (13.0-17.5) 11/11/22 07:55 Hct 41.0 % (39.0-53.0) 11/11/22 07:55 MCV 64.1 fL (80.0-100.0) L 11/11/22 07:55 MCH 20.6 pg (25.0-35.0) L 11/11/22 07:55 MCHC 32.2 g/dL (31.0-37.0) 11/11/22 07:55 RDW 15.1 % (11.5-15.5) 11/11/22 07:55 Plt Count 181 k/uL (150-450) 11/11/22 07:55 MPV 7.5 11/11/22 07:55 Neutrophils % 68 % 11/11/22 07:55 Lymphocytes % 24 % 11/11/22 07:55 Monocytes % 5 % 11/11/22 07:55 Eosinophils % 1 % 11/11/22 07:55 Basophils % 0 % 11/11/22 07:55 Neutrophils # 5.7 k/uL (1.3-7.7) 11/11/22 07:55 Lymphocytes # 2.0 k/uL (1.0-4.8) 11/11/22 07:55 Monocytes # 0.4 k/uL (0-1.0) 11/11/22 07:55 Eosinophils # 0.1 k/uL (0-0.7) 11/11/22 07:55 Basophils # 0.0 k/uL (0-0.2) 11/11/22 07:55 Microcytosis Marked 11/11/22 07:55 Sodium 138 mmol/L (137-145) 11/13/22 10:56 Potassium 4.5 mmol/L (3.5-5.1) 11/13/22 10:56 Chloride 101 mmol/L (98-107) 11/13/22 10:56 Carbon Dioxide 25 mmol/L (22-30) 11/13/22 10:56 Anion Gap 12 mmol/L 11/13/22 10:56 BUN 11 mg/dL (9-20) 11/13/22 10:56 Creatinine 0.86 mg/dL (0.66-1.25) 11/13/22 10:56 Est GFR (CKD-EPI)AfAm >90 (>60 ml/min/1.73 sqM) 11/13/22 10:56 Est GFR (CKD-EPI)NonAf >90 (>60 ml/min/1.73 sqM) 11/13/22 10:56 Glucose 79 mg/dL (74-99) 11/13/22 10:[address] Glu mg/dL 140 mg/dL 11/11/22 07:55 Hemoglobin A1c 6.5 % (<=6.0) H 11/11/22 07:55 Calcium 10.0 mg/dL (8.4-10.2) 11/13/22 10:56 Total Bilirubin 1.3 mg/dL (0.2-1.3) 11/11/22 07:55 Conjugated Bilirubin 0.0 mg/dL (0.0-0.3) 11/11/22 07:55 Unconjugated Bilirubin 1.0 mg/dL (0.0-1.1) 11/11/22 07:55 Delta Bilirubin 0.3 mg/dL (0.0-0.2) H 11/11/22 07:55 AST 59 U/L (17-59) 11/11/22 07:55 ALT 84 U/L (4-49) H 11/11/22 07:55 Alkaline Phosphatase 52 U/L (38-126) 11/11/22 07:55 Total Protein 7.8 g/dL (6.3-8.2) 11/11/22 07:55 Albumin 5.0 g/dL (3.5-5.0) 11/11/22 07:55 Triglycerides 113.00 mg/dL (0.00-149.00) 11/11/22 07:55 Cholesterol 159.00 mg/dL (0.00-200.00) 11/11/22 07:55 LDL Cholesterol, Calc 102.1 mg/dL (0.0-131.0) 11/11/22 07:55 VLDL Cholesterol, Calc 22.60 mg/dL (5.00-40.00) 11/11/22 07:55 HDL Cholesterol 34.30 mg/dL (40.00-60.00) L 11/11/22 07:55 Cholesterol/HDL Ratio 4.64 Ratio 11/11/22 07:55 TSH 6.880 mIU/L (0.465-4.680) H 11/11/22 07:55 Free T4 1.17 ng/dL (0.78-2.19) 11/11/22 07:55 Urine Color Yellow 11/10/22 02:42 Urine Appearance Clear (Clear) 11/10/22 02:42 Urine pH 5.5 (5.0-8.0) 11/10/22 02:42 Ur Specific [place] 1.025 (1.001-1.035) 11/10/22 02:42 Urine Protein Trace (Negative) H 11/10/22 02:42 Urine Glucose (UA) Negative (Negative) 11/10/22 02:42 Urine Ketones 1+ (Negative) H 11/10/22 02:42 Urine Blood Negative (Negative) 11/10/22 02:42 Urine Nitrite Negative (Negative) 11/10/22 02:42 Urine Bilirubin Negative (Negative) 11/10/22 02:42 Urine Urobilinogen <2.0 mg/dL (<2.0) 11/10/22 02:42 Ur Leukocyte Esterase Negative (Negative) 11/10/22 02:42 Urine Opiates Screen Not Detected (NotDetected) 11/10/22 02:42 Ur Oxycodone Screen Not Detected (NotDetected) 11/10/22 02:42 Urine Methadone Screen Not Detected (NotDetected) 11/10/22 02:42 Ur Propoxyphene Screen Not Detected (NotDetected) 11/10/22 02:42 Ur Barbiturates Screen Not Detected (NotDetected) 11/10/22 02:42 U Tricyclic Antidepress Not Detected (NotDetected) 11/10/22 02:42 Ur Phencyclidine Scrn Not Detected (NotDetected) 11/10/22 02:42 Ur Amphetamines Screen Detected (NotDetected) H 11/10/22 02:42 U Methamphetamines Scrn Not Detected (NotDetected) 11/10/22 02:42 U Benzodiazepines Scrn Detected (NotDetected) H 11/10/22 02:42 Redwood 0.6 mmol/L 11/13/22 10:56 Urine Cocaine Screen Not Detected (NotDetected) 11/10/22 02:42 U Marijuana (THC) Screen Detected (NotDetected) H 11/10/22 02:42 Influenza Type A (PCR) Not Detected (Not Detectd) 11/10/22 01:13 Influenza Type B (PCR) Not Detected (Not Detectd) 11/10/22 01:13 RSV (PCR) Not Detected (Not Detectd) 11/10/22 01:13 SARS-CoV-2 (PCR) Not Detected (Not Detectd) 11/10/22 01:13 Allergies Allergy/AdvReac Type Severity Reaction Status Date / Time No Known Allergies Allergy Verified 11/09/22 20:40 Patient Condition at Discharge: Stable Plan - Discharge Summary Discharge Rx Participant: Yes New Discharge Prescriptions: New Amoxic-Pot Clav 875-125Mg [Augmentin 875-125] 1 each PO DAILY 3 Days #3 tab Redwood Carbonate 600 mg PO BID 30 Days #120 cap rOPINIRole HCL [Requip] 0.25 mg PO HS PRN 30 Days #30 tab PRN Reason: Restless legs risperiDONE ER inj [Perseris] 90 mg SQ QMONTHLY 1 Days #1 each Continue Omeprazole 40 mg PO DAILY amLODIPine [Norvasc] 5 mg PO DAILY 30 Days #30 tab metFORMIN HCL [Glucophage] 500 mg PO BID-W/MEALS 30 Days #60 tab Discontinued Amoxic-Pot Clav 875-125Mg [Augmentin 875-125] PO DAILY busPIRone HCl [Buspar] 10 mg PO BID 30 Days tab Nicotine 14Mg/24Hr Patch [Habitrol] 1 patch TRANSDERM DAILY 14 Days patch Sertraline [Zoloft] 100 mg PO DAILY 30 Days tab OLANZapine [ZyPREXA] 5 mg PO HS 30 Days tab QUEtiapine [SEROquel] 50 mg PO HS lamoTRIgine [LaMICtal] 100 mg PO HS Discharge Medication List Omeprazole 40 mg PO DAILY 08/04/20 [History] Amoxic-Pot Clav 875-125Mg [Augmentin 875-125] 1 each PO DAILY 3 Days #3 tab 11/14/22 [Rx] Redwood Carbonate 600 mg PO BID 30 Days #120 cap 11/14/22 [Rx] amLODIPine [Norvasc] 5 mg PO DAILY 30 Days #30 tab 11/14/22 [Rx] metFORMIN HCL [Glucophage] 500 mg PO BID-W/MEALS 30 Days #60 tab 11/14/22 [Rx] rOPINIRole HCL [Requip] 0.25 mg PO HS PRN 30 Days #30 tab 11/14/22 [Rx] risperiDONE ER inj [Perseris] 90 mg SQ QMONTHLY 1 Days #1 each 11/14/22 [Rx] Follow up Appointment(s)/Referral(s): Psychiatry,Laura [Other] - 11/20/22 11:00 am (telehealth with Marta Miranda) [facility] [Other] - 11/20/22 3:00 pm (Telehealth appt with Cayetano Garza ) Cristine Wilks DO [Primary Care Provider] - 1-2 days Patient Instructions/Handouts: How to Stop Smoking (DC), Schizoaffective Disorder (DC) Activity/Diet/Wound Care/Special Instructions: Avoid the use of street drugs and alcohol. Take all medications as prescribed. When you are in need of refills on your medications, please contact your medical provider and/or outpatient psychiatrist/provider to have this done. Please go to your scheduled outpatient appointment for aftercare treatment. If symptoms return or become worse, call the crisis line at and/or go to the nearest emergency room for evaluation. National Suicide Hotline 988. Discharge Disposition: HOME SELF-CARE
== END 2022-11-14 11:25 | disposition home or self-care (01) | DRG 885 ==
LOC: SUPCPDRO 20:25 → EC 20:25 → 3MHU 11-10 02:31
PROVIDERS: ADMIT Psychiatry & Neurology Psychiatry; ATTEND Psychiatry & Neurology Psychiatry
DX: F25.0 Schizoaffective disorder, bipolar type (principal); F15.950 Other stimulant use, unspecified with stimulant-induced psychotic disorder with delusions; K57.92 Diverticulitis of intestine, part unspecified, without perforation or abscess without bleeding; G47.30 Sleep apnea, unspecified; F12.10 Cannabis abuse, uncomplicated; E11.9 Type 2 diabetes mellitus without complications; G25.81 Restless legs syndrome; I10 Essential (primary) hypertension; Z71.89 Other specified counseling; Z20.822 Contact with and (suspected) exposure to COVID-19; Z79.84 Long term (current) use of oral hypoglycemic drugs; Z79.899 Other long term (current) drug therapy; Z82.49 Family history of ischemic heart disease and other diseases of the circulatory system
CPT/HCPCS: 80048; 80053; 80061; 80178; 80306; 81003; 82075; 82248; 83036; 84439; 84443; 85025; 87636

== ENCOUNTER 2022-11-15 02:55 | Emergency (ER) | payer BC ==
[2022-11-15 02:59] VITALS: TEMP 98.8
[2022-11-15 03:16] VITALS: RESP 20
[2022-11-15 04:41] LABS: Basophils % (A) 0 %; Eosinophils # (A) 0.3 k/uL (0-0.7); Eosinophils % (A) 3 %; HCT 40.7 % (39.0-53.0); HGB 13.1 gm/dL (13.0-17.5); Hypochromasia Slight; Lymphocytes # (A) 1.8 k/uL (1.0-4.8); Lymphocytes % (A) 21 %; MCHC 32.1 g/dL (31.0-37.0); MCV 65.4 fL (80.0-100.0); Mean Platelet Volume 7.1; Microcytosis Marked; Monocytes # (A) 0.5 k/uL (0-1.0); Monocytes % (A) 6 %; Neutrophils # (A) 5.7 k/uL (1.3-7.7); Neutrophils % (A) 68 %; Platelet Count 193 k/uL (150-450); RBC 6.22 m/uL (4.30-5.90); RDW 14.9 % (11.5-15.5); WBC 8.5 k/uL (3.8-10.6)
[2022-11-15 04:42] LABS: Appearance,Urine Clear (Clear); Bilirubin,Urine Negative (Negative); Blood,Urine Negative (Negative); Color,Urine Light Yellow; Glucose,Urine (UA) Negative (Negative); Ketones,Urine Negative (Negative); Leukocyte Esterase,Urine Negative (Negative); Nitrite,Urine Negative (Negative); Protein,Urine Negative (Negative); Specific Gravity,Urine 1.007 (1.001-1.035); Urobilinogen,Urine <2.0 mg/dL (<2.0)
[2022-11-15 05:09] LABS: ALT 83 U/L (4-49); AST 48 U/L (17-59); African American GFR (CKD) >90 (>60 ml/min/1.73 sqM); Albumin 4.8 g/dL (3.5-5.0); Alkaline Phosphatase 51 U/L (38-126); Anion Gap 10 mmol/L; Blood Urea Nitrogen 12 mg/dL (9-20); Carbon Dioxide 25 mmol/L (22-30); Chloride 102 mmol/L (98-107); Glucose 96 mg/dL (74-99); Lipase 108 U/L (23-300); Magnesium 2.2 mg/dL (1.6-2.3); Non-African American GFR(CKD) >90 (>60 ml/min/1.73 sqM); Potassium 4.6 mmol/L (3.5-5.1); Sodium 137 mmol/L (137-145); Total Bilirubin 0.8 mg/dL (0.2-1.3); Total Protein 7.6 g/dL (6.3-8.2)
--- NOTE | 2022-11-15 06:16 | ED ---
General Adult HPI - General Chief complaint: Abdominal Pain Stated complaint: Abdominal Pain Time Seen by Provider: 11/15/22 03:41 Source: patient Mode of arrival: ambulatory Limitations: no limitations - History of Present Illness Initial comments: This is a 37-year-old male with a past medical history including bipolar disorder and recently diagnosed diverticulitis presents emergency department after feeling a "pop" after he sneezed while on the toilet. The patient stated that he was recently diagnosed with diverticulitis will make ago and is still currently on Augmentin. The patient stated that he wanted to make sure that "nothing popped inside" speaking to the emergency department. The patient did have pain on the lateral aspect of the left flank and was reproducible. The patient was otherwise resting in bed comfortably without any acute pain or distress noted. - Related Data Home Medications Medication Instructions Recorded Confirmed Omeprazole 40 mg PO DAILY 08/04/20 11/10/22 Previous Rx's Medication Instructions Recorded Amoxic-Pot Clav 875-125Mg 1 each PO DAILY 3 Days #3 tab 11/14/22 [Augmentin 875-125] [place] Carbonate 600 mg PO BID 30 Days #120 cap 11/14/22 amLODIPine [Norvasc] 5 mg PO DAILY 30 Days #30 tab 11/14/22 metFORMIN HCL [Glucophage] 500 mg PO BID-W/MEALS 30 Days #60 11/14/22 tab rOPINIRole HCL [Requip] 0.25 mg PO HS PRN 30 Days #30 tab 11/14/22 risperiDONE ER inj [Perseris] 90 mg SQ QMONTHLY 1 Days #1 each 11/14/22 Allergies Allergy/AdvReac Type Severity Reaction Status Date / Time No Known Allergies Allergy Verified 11/09/22 20:40 Review of Systems ROS Statement: Those systems with pertinent positive or pertinent negative responses have been documented in the HPI. ROS Other: All systems not noted in ROS Statement are negative. Past Medical History Past Medical History: No Reported History, Hypertension Additional Past Medical History / Comment(s): hx of Sleep apnea. colononscopy 2022 History of Any Multi-Drug Resistant Organisms: None Reported Past Surgical History: No Surgical Hx Reported, Cholecystectomy, Hernia Repair Past Anesthesia/Blood Transfusion Reactions: No Reported Reaction Past Psychological History: No Psychological Hx Reported Smoking Status: Vaper Past Drug Use History: Marijuana - Past Family History Family Family Medical History: Hyperlipidemia General Exam Limitations: no limitations General appearance: alert, in no apparent distress, obese Head exam: Present: atraumatic, normocephalic, normal inspection Eye exam: Present: normal appearance, PERRL Pupils: Present: normal accommodation ENT exam: Present: normal exam, normal oropharynx, mucous membranes moist Neck exam: Present: normal inspection, full ROM Respiratory exam: Present: normal lung sounds bilaterally Cardiovascular Exam: Present: regular rate, normal rhythm, normal heart sounds GI/Abdominal exam: Present: soft, normal bowel sounds Extremities exam: Present: normal inspection, full ROM Back exam: Present: normal inspection, full ROM, other (TTP over the left flank over the mid axillary line). Absent: CVA tenderness (R), CVA tenderness (L) Neurological exam: Present: alert, oriented X3, CN II-XII intact Psychiatric exam: Present: normal affect, normal mood Skin exam: Present: warm, dry Course Vital Signs 11/15/22 11/15/22 02:56 03:15 Temperature 98.8 F Pulse Rate 102 H 100 Respiratory 18 20 Rate Blood Pressure 148/94 140/91 O2 Sat by Pulse 99 97 Oximetry Medical Decision Making - Medical Decision Making Was pt. sent in by a medical professional or institution (, PA, CORRUGATOR HELPER, urgent care, hospital, or senior care...) When possible be specific @ -No Did you speak to anyone other than the patient for history (EMS, parent, family, police, friend...)? What history was obtained from this source @ -No Did you review nursing and triage notes (agree or disagree)? Why? @ -I reviewed and agree with nursing and triage notes Were old charts reviewed (outside hosp., previous admission, EMS record, old EKG, old radiological studies, urgent care reports/EKG's, senior care records)? Report findings @ -No old charts were reviewed Differential Diagnosis (chest pain, altered mental status, abdominal pain women, abdominal pain men, vaginal bleeding, weakness, fever, dyspnea, syncope, headache, dizziness, GI bleed, back pain, seizure, CVA, palpatations, mental health)? @ -Acute diverticulitis, diverticular abscess, hernia EKG interpreted by me (3pts min.). @ -None X-rays interpreted by me (1pt min.). @ -None done CT interpreted by me (1pt min.). @ -CT abdomen and pelvis with IV contrast was obtained and was interpreted by myself showing uncomplicated acute sigmoid diverticulitis. There was small fat fluid umbilical and supraumbilical hernias with a small moderate-sized right lateral hernia containing nonobstructive small bowel. U/S interpreted by me (1pt. min.). @ -None done What testing was considered but not performed or refused? (CT, X-rays, U/S, labs)? Why? @ -None What meds were considered but not given or refused? Why? @ -None Did you discuss the management of the patient with other professionals (professionals i.e. Dr., PA, CORRUGATOR HELPER, lab, RT, psych nurse, social insurance administrator, food technology teacher, teacher, weapons officer, briefcase sewer)? Give summary @ -No Was smoking cessation discussed for >3mins.? @ -No Was critical care preformed (if so, how long)? @ -No Were there social determinants of health that impacted care today? How? (Homelessness, low income, unemployed, alcoholism, drug addiction, transportation, low edu. Level, literacy, decrease access to med. care, group home, rehab)? @ -No Was there de-escalation of care discussed even if they declined (Discuss DNR or withdrawal of care, Hospice)? DNR status @ -No What co-morbidities impacted this encounter? (DM, HTN, Smoking, COPD, CAD, Cancer, CVA, ARF, Chemo, Hep., AIDS, mental health diagnosis, sleep apnea, morbid obesity)? @ -Bipolar disorder, recently diagnosed diverticulitis Was patient admitted / discharged? Hospital course, mention meds given and route, prescriptions, significant lab abnormalities, going to OR and other pertinent info. @ -The patient was seen and evaluated in the emergency department. Physical exam, the patient was resting in bed without any acute distress. Vital signs admission were stable. Due to the nature the patient's complaints, laboratory workup and computed tomography scan was obtained as the patient wanted to make sure "nothing popped inside with his diverticulitis." All workup was negative and the patient continued diverticulitis but was continuing on Augmentin. The patient was ice to continue take his medications as prescribed. The patient's pain was likely secondary to musculoskeletal strain secondary to his sneezing. The patient was advised to take Tylenol Motrin for the pain and was told to follow-up with his private care physician for further workup and evaluation. The patient was agreeable to this and all discretions were answered. The patient was discharged home in stable condition. Undiagnosed new problem with uncertain prognosis? @ -No Drug Therapy requiring intensive monitoring for toxicity (Heparin, Nitro, Insulin, Cardizem)? @ -No Were any procedures done? @ -No Diagnosis/symptom? @ -Left flank musculoskeletal strain Acute, or Chronic, or Acute on Chronic? @ -Acute Uncomplicated (without systemic symptoms) or Complicated (systemic symptoms)? @ -Uncomplicated Side effects of treatment? @ -No Exacerbation, Progression, or Severe Exacerbation? @ -No Poses a threat to life or bodily function? How? (Chest pain, USA, MA, pneumonia, PE, COPD, DKA, ARF, appy, cholecystitis, CVA, Diverticulitis, Homicidal, Suicidal, threat to staff... and all critical care pts) @ -No - Lab Data Result diagrams: 11/15/22 04:28 11/15/22 04:28 Lab Results 11/15/22 11/15/22 11/15/22 Range/Units 04:28 04:28 04:28 WBC 8.5 (3.8-10.6) k/uL RBC 6.22 H (4.30-5.90) m/uL Hgb 13.1 (13.0-17.5) gm/dL Hct 40.7 (39.0-53.0) % MCV 65.4 L (80.0-100.0) fL MCH 21.0 L (25.0-35.0) pg MCHC 32.1 (31.0-37.0) g/dL RDW 14.9 (11.5-15.5) % Plt Count 193 (150-450) k/uL MPV 7.1 Neutrophils % 68 % Lymphocytes % 21 % Monocytes % 6 % Eosinophils % 3 % Basophils % 0 % Neutrophils # 5.7 (1.3-7.7) k/uL Lymphocytes # 1.8 (1.0-4.8) k/uL Monocytes # 0.5 (0-1.0) k/uL Eosinophils # 0.3 (0-0.7) k/uL Basophils # 0.0 (0-0.2) k/uL Hypochromasia Slight Microcytosis Marked Sodium 137 (137-145) mmol/L Potassium 4.6 (3.5-5.1) mmol/L Chloride 102 (98-107) mmol/L Carbon Dioxide 25 (22-30) mmol/L Anion Gap 10 mmol/L BUN 12 (9-20) mg/dL Creatinine 0.82 (0.66-1.25) mg/dL Est GFR (CKD-EPI)AfAm >90 (>60 ml/min/1.73 sqM) Est GFR (CKD-EPI)NonAf >90 (>60 ml/min/1.73 sqM) Glucose 96 (74-99) mg/dL Calcium 10.0 (8.4-10.2) mg/dL Magnesium 2.2 (1.6-2.3) mg/dL Total Bilirubin 0.8 (0.2-1.3) mg/dL AST 48 (17-59) U/L ALT 83 H (4-49) U/L Alkaline Phosphatase 51 (38-126) U/L Total Protein 7.6 (6.3-8.2) g/dL Albumin 4.8 (3.5-5.0) g/dL Lipase 108 (23-300) U/L Urine Color Light Yellow Urine Appearance Clear (Clear) Urine pH 6.0 (5.0-8.0) Ur Specific T[place] 1.007 (1.001-1.035) Urine Protein Negative (Negative) Urine Glucose (UA) Negative (Negative) Urine Ketones Negative (Negative) Urine Blood Negative (Negative) Urine Nitrite Negative (Negative) Urine Bilirubin Negative (Negative) Urine Urobilinogen <2.0 (<2.0) mg/dL Ur Leukocyte Esterase Negative (Negative) Disposition Clinical Impression: Muscle strain Disposition: HOME SELF-CARE Condition: Stable Is patient prescribed a controlled substance at d/c from ED?: No Referrals: Cristine Wilks DO [Primary Care Provider] - 1-2 days Time of Disposition: 06:20
--- NOTE | 2022-11-15 06:20 | CT ---
EXAMINATION TYPE: CT abdomen pelvis w con CT DLP: 2690.6 mGycm, Automated exposure control for dose reduction was used. DATE OF EXAM: 11/15/2022 4:48 AM COMPARISON: None. CLINICAL INDICATION:Male, 37 years old with history of Acute abdominal pain, flank pain; TECHNIQUE: Standard CT of the abdomen and pelvis following the administration of 100 cc of Isovue 3 00 IV contrast material. Coronal and sagittal reformats were performed. FINDINGS: LOWER CHEST: Unremarkable ABDOMEN LIVER: Diffusely hypoattenuating parenchyma. GALLBLADDER AND BILE DUCTS: The gallbladder is surgically absent. No biliary ductal dilatation. PANCREAS: Unremarkable. SPLEEN: Enlarged measuring 18.1 cm in CC dimension. ADRENAL GLANDS: Unremarkable. KIDNEYS AND URETERS: No evidence of hydronephrosis or renal calculus. Kidneys enhance symmetrically. Contrast is demonstrated within both collecting systems on the delayed phase. PELVIS BLADDER: Under distended, limiting evaluation. REPRODUCTIVE: Unremarkable. ABDOMEN & PELVIS STOMACH AND BOWEL: Stomach and duodenum are unremarkable. There is mild circumferential wall thickeni ng with surrounding fat stranding involving the sigmoid colon. No pericolonic abscess. The appendix i s within normal limits. No evidence of bowel obstruction. PERITONEUM: No evidence of pneumoperitoneum or free fluid. VASCULATURE: No evidence of aortic aneurysm. MUSCULOSKELETAL: No acute osseous abnormalities LYMPH NODES: No gross evidence for lymphadenopathy. SOFT TISSUE/ABDOMINAL WALL: Small fat filled umbilical and supraumbilical hernias. Right inguinal her molina containing a portion of nonobstructive small bowel. IMPRESSION: 1. Uncomplicated acute sigmoid diverticulitis. 2. Small fat filled umbilical and supraumbilical hernias with a small moderate size right lateral her molina containing nonobstructive small bowel. 3. Splenomegaly.
[2022-11-15 06:32] VITALS: BP 148/110; PULSE 90
== END 2022-11-15 06:32 | disposition home or self-care (01) ==
LOC: EC 02:55
DX: S39.011A Strain of muscle, fascia and tendon of abdomen, initial encounter (principal); I10 Essential (primary) hypertension; F17.290 Nicotine dependence, other tobacco product, uncomplicated; F12.90 Cannabis use, unspecified, uncomplicated; Z79.899 Other long term (current) drug therapy; X50.9XXA Other and unspecified overexertion or strenuous movements or postures, initial encounter; Y92.002 Bathroom of unspecified non-institutional (private) residence as the place of occurrence of the external cause
CPT/HCPCS: 36415; 80053; 83690; 83735; 85025; 81003; 74177; 99284; Q9967